=== PATIENT | female | born 2000 | race Caucasian/White ===

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

== ENCOUNTER 2022-01-16 20:46 | Emergency (ER) | payer BC, MEDICAID, SELFPAY ==
[2022-01-16 22:09] VITALS: BP 135/88; PULSE 115; RESP 18; TEMP 37.1; O2SAT 98; BMI 40.7
--- NOTE | 2022-01-16 23:05 | CTR_ITS ---
PROCEDURE INFORMATION: Exam: CT Maxillofacial Without Contrast; Mandible Exam date and time: 01/16/2022 11:10 PM Age: 21 years old Clinical indication: Injury or trauma; Blunt trauma (contusions or hematomas); Jaw; Prior surgery; Surgery type: [place] teeth extraction; Patient HX: Canned good from a high shelf slipped and struck patient on left side of mandible. C/O pain with swelling. ; Additional info: Facial trauma TECHNIQUE: Imaging protocol: Computed tomography maxillofacial without contrast. Exam focused on the mandible. Radiation optimization: All CT scans at this facility use at least one of these dose optimization techniques: automated exposure control; mA and/or kV adjustment per patient size (includes targeted exams where dose is matched to clinical indication); or iterative reconstruction. COMPARISON: No relevant prior studies available. RADIATION DOSE METRICS: Total DLP (mGy-cm): 612.48 FINDINGS: Orbital cavities: The orbits are intact. No orbital fracture. The globes appear unremarkable. Bones/joints: The nasal bones appear intact. The zygomatic arches are intact. The mandible is intact. No fracture of the pterygoid plates. Paranasal sinuses: No air-fluid levels are seen in the paranasal sinuses. Soft tissues: No soft tissue hematoma appreciated. CT/CT facial bones wo con* [id number] IMPRESSION: No acute maxillofacial fracture demonstrated.
--- NOTE | 2022-01-16 23:39 | W.ED.DENTAL ---
HPI - Dental/Oral General: Chief complaint: Dental/Oral Stated complaint: face injury Time Seen by Provider: 01/16/22 23:06 Source: patient History of Present Illness: 21-year-old female notes that she was at work, arranging cans on a shelf, and more than 1 can fell striking her in the left upper jaw mainly. She thinks her teeth on that side are a bit loose. There is no bleeding. No lacerations. Her jaw is visibly swollen and tender. MD Complaint: tooth pain (jaw pain) Onset (ago): hour(s) Duration: constant Severity: moderate Relieving factors: other (ice) Exacerbating factors: other Associated symptoms: Denies fever(s), gum swelling or tongue swelling Treatment prior to arrival: other Review of Systems Const: Denies: fever(s) Eyes: Denies: change in vision or blurry vision ENMT: Denies: throat pain Resp: Denies: dyspnea GI: Denies: vomiting Neuro: Reports: headache(s) All/Imm: Denies: tongue swelling PFSH ED PFSH: Medical History ADD (attention deficit disorder) Asthma Hyperlipidemia Hypertension No significant past medical history neghx: thyroid,dvt/pe PCP: [facility] Type 2 diabetes mellitus Surgical History H/O wisdom tooth extraction (~07/2019) History of cholecystectomy (~06/07/17) Family History Father Diabetes Hyperlipidemia Hypertension Mother Diabetes Grandfather Diabetes Maternal Hyperlipidemia Paternal Hypertension Paternal Maternal Heart disease Paternal Grandmother Hyperlipidemia Maternal grandmother Hypertension Paternal Maternal Stroke Maternal grandmother Paternal grandmother Breast cancer Maternal great grandmother--dx age unknown Paternal grandmother--dx age unknown Family/Other Hyperlipidemia Paternal aunt Breast cancer Paternal aunt--dx age unknown Denies family history of Colon cancer Ovarian cancer Family history of thyroid problem Uterine cancer Female Reproductive History: Date of last menstrual period: 01/16/22 Physical Exam Const: COMMON NORMALS: no acute distress GENERAL APPEARANCE: cooperative HENMT: COMMON NORMALS: Normal external nose present HEAD & SCALP: normal to inspection FACE & SINUS: edema (left maxillary) and Facial tenderness on exam of face and sinuses; no ecchymosis and no erythema NOSE: Normal external nose present and Normal nares present TEETH & GINGIVA: Yes abnormal tooth and associated gingiva (13 is miminmally loose. no fracture no bleeding) THROAT: posterior oropharynx normal Eye: COMMON NORMALS: Equal, round and reactive pupils present and EOMs intact bilaterally PUPIL: Yes Equal, round and reactive pupils present Neck/C-Spine: COMMON NORMALS: full ROM Chest: CHEST: Yes Symmetrical chest wall rise Resp: COMMON NORMALS: normal respiratory effort, No retractions and No use of accessory muscles Cardio: COMMON NORMALS: regular rate and regular rhythm RATE: regular rate RHYTHM: regular rhythm Neuro: ALINA COMA SCALE: document GCS findings Alina coma scale eye opening: Spontaneous Alina coma scale verbal response: Orientated [place] coma scale motor response: Obey commands Alina coma scale total score: 15 Course Vital Signs: Vital signs: Vital Signs Temperature 98.7 F 01/16/22 22:09 Pulse Rate 115 H 01/16/22 22:09 Respiratory Rate 18 01/16/22 22:09 Blood Pressure 135/88 01/16/22 22:09 Pulse Oximetry 98 01/16/22 22:09 Oxygen Delivery Me thod 01/16/22 22:09 MDM - Dental/Oral Medical Decision Making Exam does not reveal a tooth fracture, tooth abscess, or definite jaw deformity. She is visibly swollen. CT is pending. CT result is negative. Will allow home Lab Data Radiology Impressions Face CT 01/16/22 23:05 IMPRESSION: No acute maxillofacial fracture demonstrated. Discharge Plan Discharge Patient Disposition: Home Clinical Impression: Contusion of face Condition: Stable Prescriptions: New ketorolac 10 mg tablet 10 mg PO TID PRN (Reason: pain) Qty: 10 0RF No Action lovastatin 10 mg tablet 10 mg PO DAILY cholecalciferol (vitamin D3) 1,250 mcg (50,000 unit) tablet 1,250 mcg PO .weekly albuterol sulfate 90 mcg/actuation aerosol powdr breath activated 2 inh INHALATION Q6H PRN (Reason: Shortness Of Breath) lisinopril 2.5 mg tablet 10 mg PO DAILY venlafaxine 75 mg capsule,extended release 24hr 75 mg PO DAILY (DME) blood-glucose meter [Ornicept Verio Flex Start] Kit See Rx Instructions .Route Qty: 1 3RF Rx Instructions: Check blood sugars 4 times a day. Xifaxan 200 mg tablet 400 mg PO BID Qty: 120 0RF Slynd 4 mg (28) tablet 4 mg PO DAILY Qty: 3 3RF (DME) OneTouch Ultra Test Strip See Rx Instructions .Route Qty: 100 3RF Rx Instructions: Check BS 4 times a day. Lantus U-100 Insulin 100 unit/mL solution 60 unit SUBCUT DAILY Qty: 45 3RF Rx Instructions: Inject 60 units subcut once a day. (DME) lancets [OneTouch UltraSoft Lancets] Misc See Rx Instructions .Route Qty: 300 3RF Rx Instructions: Check BS 3 times a day. melatonin 5 mg Capsule 5 mg PO BEDTIME PRN (Reason: Sleep) Proctofoam 1 % foam 1 applic [place] BID Qty: 15 0RF EpiPen 2-Leo 0.3 mg/0.3 mL auto-injector 0.3 mg IM Q10M PRN (Reason: anaphylaxis) Qty: 2 2RF Rx Instructions: for 3 doses Discharge Orders: Discharge ED (Routine); Ordered 01/17/22 Ordered By: Mo Gutierrez Referrals: Teodoro Vasquez MD [Primary Care Provider] - 4-7 days Patient Instructions: Facial Contusion (ED) Coding Level of Care Code ED Flexographic Printing Machinist for Gosia Starkey
[2022-01-16] MEDS: oxyCODONE-APAP 5-325 mg Tablet 2 TAB PO (23:51)
== END 2022-01-17 00:44 | disposition home or self-care (01) ==
PROVIDERS: Emergency Provider Emergency Medicine; PCP Family Medicine
DX: S00.83XA Contusion of other part of head, initial encounter (principal); W20.8XXA Other cause of strike by thrown, projected or falling object, initial encounter; E78.5 Hyperlipidemia, unspecified; I10 Essential (primary) hypertension; E11.9 Type 2 diabetes mellitus without complications; Z79.4 Long term (current) use of insulin
CPT/HCPCS: 70486; 99284

== ENCOUNTER → 2022-02-02 13:25 | Outpatient (BNVA) | payer BC, MEDICAID, SELFPAY | PROVIDERS: PCP Family Medicine; Visit Provider Registered Nurse Neonatal Intensive Care | DX: S69.92XA Unspecified injury of left wrist, hand and finger(s), initial encounter (principal); W01.198A Fall on same level from slipping, tripping and stumbling with subsequent striking against other object, initial encounter | CPT/HCPCS: 73110 ==

== ENCOUNTER → 2022-03-22 12:34 | Outpatient (BNVA) | payer BC, MEDICAID, SELFPAY | PROVIDERS: PCP Family Medicine; Visit Provider Nurse Practitioner | DX: R50.9 Fever, unspecified (principal); K52.9 Noninfective gastroenteritis and colitis, unspecified | CPT/HCPCS: 87400 ==

== ENCOUNTER → 2022-04-26 10:35 | Outpatient (BNVA) | payer BC, MEDICAID, SELFPAY | PROVIDERS: PCP Family Medicine; Visit Provider Registered Nurse Neonatal Intensive Care | DX: R50.9 Fever, unspecified (principal); H66.002 Acute suppurative otitis media without spontaneous rupture of ear drum, left ear | CPT/HCPCS: 87400 ==

== ENCOUNTER 2022-11-13 08:14 | Outpatient (CLI) | payer BC, MEDICAID, SELFPAY ==
[2022-11-13 08:57] LABS: Basophils # 0.1 10^3/uL (0.0-0.1); Basophils % 0.4 %; Eosinophils # 0.1 10^3/uL (0.0-0.8); Eosinophils % 0.8 %; Hematocrit 38.7 % (37.0-47.0); Hemoglobin 13.2 g/dL (11.5-15.3); Lymphocytes # 5.5 10^3/uL (1.5-6.5); Lymphocytes % 33.6 %; Mean Corpuscular HGB Conc 34.1 g/dL (30.0-36.0); Mean Corpuscular Hemoglobin 28.2 pg (28.0-34.0); Mean Corpuscular Volume 82.7 fl (81-99); Mean Platelet Volume 9.2 fL (7.4-10.4); Monocytes % 6.3 %; Neutrophils # 9.65 10^3/uL (1.8-8.0); Neutrophils % 58.5 %; Nucleated Red Blood Cells % 0 %; Platelet Count 491 10^3/cmm (130-400); Red Blood Count 4.68 10^6/uL (4.1-5.3); Red Cell Distribution Width 14.9 % (12.1-15.1); White Blood Count 16.5 10^3/uL (4.5-13.0)
[2022-11-13 09:20] LABS: Estmated Average Glucose 200; Hemoglobin A1C 8.6 % (4.0-6.0)
[2022-11-13 09:25] LABS: Anion Gap 14.7 (5-19); Blood Urea Nitrogen 9 mg/dL (6-20); Carbon Dioxide 25 mmol/L (22-29); Chloride 101 mmol/L (98-107); Chol HDL Ratio 4.67 mg/dL (0.0-4.40); Cholesterol 182 mg/dL (0-200); Glomerular Filtration Rate 203.5 mL/min (90-130); Glucose 269 mg/dL (65-115); HDL Cholesterol 39 mg/dL (60-100); LDL Cholesterol Calculated 91 mg/dL (50-129); LDL HDL Ratio 2.33 RATIO (0.00-3.22); Osmolality Calculated 292 mOsm/kg (285-295); Potassium 3.7 mmol/L (3.5-5.1); Sodium 137 mmol/L (136-145); Thyroid Stimulating Hormone 3.15 uIU/mL (0.27-4.20); Triglycerides 261 mg/dL (0-150)
[2022-11-13 09:28] LABS: Creatinine Urine, Random 85 mg/dL (28-217); Microalbum Creatinine Ratio Ur 12 mg/dL (0-20); Microalbumin Random Urine 1 ug/dL (0-20)
[2022-11-13 09:37] LABS: Hepatitis A Antibody IgM Non-Reactive (Nonreactive); Hepatitis B Core AB, Total Non-Reactive (Nonreactive); Hepatitis B Surface Antigen Non-Reactive (Nonreactive); Hepatitis C Virus Antibody Non-Reactive (Nonreactive)
[2022-11-13 09:42] LABS: Hepatitis B Surface AB < 3.5 (11.5-1000)
[2022-11-13 10:59] LABS: LAB Peripheral Smear Sent for Review
== END 2022-11-13 08:15 | disposition home or self-care (01) ==
PROVIDERS: PCP Family Medicine; Visit Provider Family Medicine
DX: E11.9 Type 2 diabetes mellitus without complications (principal); E78.5 Hyperlipidemia, unspecified; I10 Essential (primary) hypertension
CPT/HCPCS: 36415; 80048; 80061; 80503; 82044; 83036; 84443; 85025; 86705; 86706; 86709; 86803; 87340

== ENCOUNTER 2022-12-23 20:43 | Emergency (ER) | payer BC, MEDICAID, SELFPAY ==
[2022-12-23 20:53] VITALS: BP 150/94; PULSE 134; RESP 20; TEMP 37.1; O2SAT 98; BMI 42.2
--- NOTE | 2022-12-23 20:56 | ECG_ITS ---
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 Measurements Intervals [place] Rate: 124 P: 61 IL: 150 QRS: 87 QRSD: 100 T: 4 QT: 337 QTc: 484 Interpretive Statements SINUS TACHYCARDIA NONSPECIFIC T-WAVE ABNORMALITY No previous ECG available for comparison Electronically Signed On 12-24-2022 14:00:02 CDT by Ted Fischer M.D. [id number]
--- NOTE | 2022-12-23 20:57 | XRR_ITS ---
PROCEDURE INFORMATION: Exam: XR Chest Exam date and time: 12/23/2022 9:13 PM Age: 22 years old Clinical indication: Pain; Chest pressure; Additional info: Chest pain TECHNIQUE: Imaging protocol: Radiologic exam of the chest. Views: 1 view. COMPARISON: CR XR KUB [id number] 01/20/2016 11:40 AM FINDINGS: Lungs: Unremarkable. No consolidation. Pleural spaces: Unremarkable. No pleural effusion. No pneumothorax. Heart/Mediastinum: Unremarkable. No cardiomegaly. Bones/joints: Unremarkable. XR/XR chest 1V portable [id number] IMPRESSION: No acute findings.
--- NOTE | 2022-12-23 21:01 | W.ED.CHESTPA ---
HPI - Chest Pain General: Chief Complaint: Chest Pain Stated Complaint: Chest Pain\SOB Time Seen by Provider: 12/23/22 20:56 History of Present Illness: 22-year-old female comes in today with chest wall tenderness. 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 After getting off work patient started having some discomfort in the anterior chest. Patient is to be following up with a administrative hearing officer for Holter monitor and further evaluation of recurrent chest pain. Patient states that occasionally she will have chest discomfort that lasts about 2 hours and resolves. Patient reports tactile stimuli seems to aggravate the pain today. Patient appears nontoxic. Patient appears mild to moderate pain. Patient has a history of ADD, hypertension, type 2 diabetes, asthma. Review of Systems General: Reports: 10 or more systems reviewed and unremarkable except in HPI and below Card: Reports: chest pain PFSH ED PFSH: Medical History ADD (attention deficit disorder) Asthma Hyperlipidemia Hypertension No significant past medical history neghx: thyroid,dvt/pe PCP: [facility] Type 2 diabetes mellitus Surgical History H/O wisdom tooth extraction (~07/2019) History of cholecystectomy (~06/07/17) Family History Father Diabetes Hyperlipidemia Hypertension Mother Diabetes Grandfather Diabetes Maternal Hyperlipidemia Paternal Hypertension Paternal Maternal Heart disease Paternal Grandmother Hyperlipidemia Maternal grandmother Hypertension Paternal Maternal Stroke Maternal grandmother Paternal grandmother Breast cancer Maternal great grandmother--dx age unknown Paternal grandmother--dx age unknown Family/Other Hyperlipidemia Paternal aunt Breast cancer Paternal aunt--dx age unknown Denies family history of Colon cancer Ovarian cancer Family history of thyroid problem Uterine cancer Social History Substance/Drug Use: never Do you think of yourself as: Don't Know Physical Exam Const: COMMON NORMALS: alert HENMT: COMMON NORMALS: normocephalic HEAD & SCALP: normocephalic MOUTH: Normal oral and palatal mucosa present Neck/C-Spine: COMMON NORMALS: full ROM Chest: CHEST: Yes tenderness (Anterior palpable tenderness) Resp: COMMON NORMALS: normal respiratory effort and clear to auscultation bilaterally AUSCULTATION: clear to auscultation bilaterally Cardio: COMMON NORMALS: regular rate and regular rhythm RATE: regular rate RHYTHM: regular rhythm Back/Pelvis: COMMON NORMALS: thoracic and lumbar spine normal to inspection Extremity: COMMON NORMALS: normal to inspection Neuro: SENSORIUM/ORIENTATION: Yes alert Skin: NARRATIVE SKIN EXAM: Appears to have seborrheic dermatitis to the face and scalp Course Vital Signs: Vital signs: Vital Signs Temperature 98.8 F 12/23/22 22:40 Pulse Rate 105 H 12/23/22 22:40 Respiratory Rate 16 12/23/22 22:40 Blood Pressure 123/81 12/23/22 22:40 Pulse Oximetry 97 12/23/22 22:40 MDM - Chest Pain Medical Decision Making 22-year-old female comes in today with complaints of tenderness to the chest wall. On exam patient appears nontoxic. Patient moves all extremities well. Palpation of the chest elicits pain. Patient appears nontoxic. Vital signs are normal except for some mild elevation in blood pressure and pulse. Differential diagnosis includes arrhythmia, costochondritis, muscle strain, anxiety. Laboratory values were unremarkable. EKG showed some mild sinus tachycardia. Patient's blood pressure and pulse rate came down. Patient's pain was improved with ketorolac injection. Reviewed exam with patient recommended follow-up with primary care for further instructions. Recommended [id number] pain relievers for discomfort. Patient stated understanding. Lab Data 12/23/22 21:03 12/23/22 21:03 Radiology Impressions Chest X-Ray 12/23/22 20:57 IMPRESSION: No acute findings. Laboratory Results WBC 15.4 10^3/uL (4.5-13.0) H 12/23/22 21:03 RBC 4.79 10^6/uL (4.1-5.3) 12/23/22 21:03 Hgb 13.3 g/dL (11.5-15.3) 12/23/22 21:03 Hct 39.3 % (37.0-47.0) 12/23/22 21:03 MCV 82.0 fl (81-99) 12/23/22 21:03 MCH 27.8 pg (28.0-34.0) L 12/23/22 21:03 MCHC 33.8 g/dL (30.0-36.0) 12/23/22 21:03 RDW 14.8 % (12.1-15.1) 12/23/22 21:03 Plt Count 570 10^3/cmm (130-400) H 12/23/22 21:03 MPV 9.3 fL (7.4-10.4) 12/23/22 21:03 Neut % (Auto) 62.9 % 12/23/22 21:03 Lymph % (Auto) 31.9 % 12/23/22 21:03 Huron % (Auto) 3.8 % 12/23/22 21:03 Eos % (Auto) 0.6 % 12/23/22 21:03 Baso % (Auto) 0.5 % 12/23/22 21:03 Neut # (Auto) 9.70 10^3/uL (1.8-8.0) H 12/23/22 21:03 Lymph # (Auto) 4.9 10^3/uL (1.5-6.5) 12/23/22 21:03 Huron # (Auto) 0.6 10^3/uL (0.2-0.9) 12/23/22 21:03 Eos # (Auto) 0.1 10^3/uL (0.0-0.8) 12/23/22 21:03 Baso # (Auto) 0.1 10^3/uL (0.0-0.1) 12/23/22 21:03 Nucleated RBC % (auto) 0 % 12/23/22 21:03 Nucleated RBCs # 0.0 /100WBC 12/23/22 21:03 D-Dimer 0.29 ug/mIFEU (0-0.59) 12/23/22 21:03 Sodium 135 mmol/L (136-145) L 12/23/22 21:03 Potassium 3.7 mmol/L (3.5-5.1) 12/23/22 21:03 Chloride 100 mmol/L (98-107) 12/23/22 21:03 Carbon Dioxide 22 mmol/L (22-29) 12/23/22 21:03 Anion Gap 16.7 (5-19) 12/23/22 21:03 BUN 12 mg/dL (6-20) 12/23/22 21:03 Creatinine 0.6 mg/dL (0.5-0.9) 12/23/22 21:03 GFR Calculation 127.5 mL/min (90-130) 12/23/22 21:03 Glucose 294 mg/dL (65-115) H 12/23/22 21: Calculated Osmolality 291 mOsm/kg (285-295) 12/23/22 21: Calcium 9.4 mg/dL (8.5-10.5) 12/23/22 21:03 Total Bilirubin 0.6 mg/dL (0.15-1.2) 12/23/22 21:03 AST 12 U/L (0-32) 12/23/22 21: ALT 15 U/L (0-33) 12/23/22 21:03 Alkaline Phosphatase 95 U/L (35-105) 12/23/22 21:03 Troponin T Baseline 8 ng/L (0-10) 12/23/22 21:03 NT-Pro-B Natriuret Pep 36 pg/mL (0-125) 12/23/22 21:03 Total Protein 7.4 g/dL (6.6-8.7) 12/23/22 21: Albumin 4.5 g/dL (3.5-5.2) 12/23/22 21: Globulin 2.9 g/dL (1.3-4.6) 12/23/22 21: Lipase 16 U/L (13-60) 12/23/22 21: HCG, Qual Negative (Negative) 12/23/22 21:03 Discharge Plan Discharge Patient Disposition: Home Clinical Impression: Acute chest wall pain Condition: Stable Prescriptions: No Action lovastatin 10 mg tablet 10 mg PO DAILY cholecalciferol (vitamin D3) 1,250 mcg (50,000 unit) tablet 1,250 mcg PO .weekly albuterol sulfate 90 mcg/actuation aerosol powdr breath activated 2 inh INHALATION Q6H PRN (Reason: Shortness Of Breath) lisinopril 2.5 mg tablet 10 mg PO DAILY venlafaxine 75 mg capsule,extended release 24hr 75 mg PO DAILY (DME) blood-glucose meter [GridApp Systemsuch Verio Flex Start] Kit See Rx Instructions .Route Qty: 1 3RF Rx Instructions: Check blood sugars 4 times a day. Xifaxan 200 mg tablet 400 mg PO BID Qty: 120 0RF fluconazole [Diflucan] 150 mg tablet 150 mg PO Q3D Qty: 3 0RF Rx Instructions: for a total of 3 doses ondansetron 4 mg tablet,disintegrating 4 mg PO Q8H PRN (Reason: nausea and vomiting) Qty: 14 0RF (DME) OneTouch Ultra Test Strip See Rx Instructions .Route Qty: 100 3RF Rx Instructions: Check BS 4 times a day. Lantus U-100 Insulin 100 unit/mL solution 60 unit SUBCUT DAILY Qty: 45 3RF Rx Instructions: Inject 60 units subcut once a day. (DME) lancets [OneTouch UltraSoft Lancets] Misc See Rx Instructions .Route Qty: 300 3RF Rx Instructions: Check BS 3 times a day. Slynd 4 mg (28) tablet See Rx Instructions .ROUTE .COMPLEX Qty: 84 2RF Dose Instruction: TAKE 1 TABLET BY MOUTH EVERY DAY Rx Instructions: TAKE 1 TABLET BY MOUTH EVERY DAY melatonin 5 mg Capsule 5 mg PO BEDTIME PRN (Reason: Sleep) EpiPen 2-Leo 0.3 mg/0.3 mL auto-injector 0.3 mg IM Q10M PRN (Reason: anaphylaxis) Qty: 2 2RF Rx Instructions: for 3 doses ketorolac 10 mg tablet 10 mg PO TID PRN (Reason: pain) Qty: 10 0RF Discharge Orders: Discharge ED (Routine); Ordered 12/23/22 Ordered By: Lopez Salinas Referrals: Teodoro Vasquez MD [Primary Care Provider] - Discharge Diet: Usual diet Discharge Activity: Increase activity as tolerated Patient Instructions: Chest Wall Pain (ED) Activity Restrictions/Additional Instructions: Drink plenty of water. Use acetaminophen and/or ibuprofen to help with pain. Activity as tolerated. Follow-up with primary care for further instructions. Return to ED for new concerns. Coding Level of Care Code ED Personal Lines Insurance Agent for Gosia Starkey
[2022-12-23] MEDS: ketorolac 30 mg/mL INJ 15 MG IVP (21:14)
[2022-12-23 21:16] LABS: Basophils # 0.1 10^3/uL (0.0-0.1); Basophils % 0.5 %; Eosinophils # 0.1 10^3/uL (0.0-0.8); Eosinophils % 0.6 %; Hematocrit 39.3 % (37.0-47.0); Hemoglobin 13.3 g/dL (11.5-15.3); Lymphocytes # 4.9 10^3/uL (1.5-6.5); Lymphocytes % 31.9 %; Mean Corpuscular HGB Conc 33.8 g/dL (30.0-36.0); Mean Corpuscular Hemoglobin 27.8 pg (28.0-34.0); Mean Platelet Volume 9.3 fL (7.4-10.4); Monocytes # 0.6 10^3/uL (0.2-0.9); Monocytes % 3.8 %; Neutrophils % 62.9 %; Nucleated Red Blood Cells % 0 %; Platelet Count 570 10^3/cmm (130-400); Red Blood Count 4.79 10^6/uL (4.1-5.3); Red Cell Distribution Width 14.8 % (12.1-15.1); White Blood Count 15.4 10^3/uL (4.5-13.0)
[2022-12-23 21:34] LABS: D Dimer 0.29 ug/mIFEU (0-0.59)
[2022-12-23 21:36] LABS: HCG, Serum Qual Negative (Negative)
[2022-12-23 21:45] VITALS: BP 123/81; PULSE 122; RESP 16; O2SAT 97
[2022-12-23 21:46] LABS: Alanine Aminotransferase 15 U/L (0-33); Albumin Level 4.5 g/dL (3.5-5.2); Alkaline Phosphatase 95 U/L (35-105); Anion Gap 16.7 (5-19); Aspartate Amino Transferase 12 U/L (0-32); Blood Urea Nitrogen 12 mg/dL (6-20); Calcium 9.4 mg/dL (8.5-10.5); Carbon Dioxide 22 mmol/L (22-29); Chloride 100 mmol/L (98-107); Globulin 2.9 g/dL (1.3-4.6); Glomerular Filtration Rate 127.5 mL/min (90-130); Glucose 294 mg/dL (65-115); Lipase 16 U/L (13-60); NT Pro B Type Natriuretic Pept 36 pg/mL (0-125); Osmolality Calculated 291 mOsm/kg (285-295); Potassium 3.7 mmol/L (3.5-5.1); Sodium 135 mmol/L (136-145); Total Bilirubin 0.6 mg/dL (0.15-1.2); Total Protein 7.4 g/dL (6.6-8.7)
[2022-12-23 22:15] LABS: Troponin(5th) Baseline 8 ng/L (0-10)
[2022-12-23 22:40] VITALS: BP 123/81; PULSE 105; RESP 16; TEMP 37.1; O2SAT 97
== END 2022-12-23 22:42 | disposition home or self-care (01) ==
PROVIDERS: Emergency Provider Nurse Practitioner Family; PCP Family Medicine
DX: R07.89 Other chest pain (principal); E11.9 Type 2 diabetes mellitus without complications; I10 Essential (primary) hypertension; E78.5 Hyperlipidemia, unspecified; J45.909 Unspecified asthma, uncomplicated; Z79.84 Long term (current) use of oral hypoglycemic drugs; Z79.899 Other long term (current) drug therapy
CPT/HCPCS: 71045; 80053; 83690; 83880; 84484; 84703; 85025; 85378; 93005; 96374; 99285; J1885

== ENCOUNTER → 2023-03-01 13:37 | Outpatient (BNVA) | payer BC, MEDICAID, SELFPAY | PROVIDERS: PCP Family Medicine; Visit Provider Internal Medicine | DX: R07.9 Chest pain, unspecified (principal); R00.0 Tachycardia, unspecified | CPT/HCPCS: 93005 ==

== ENCOUNTER 2023-03-16 07:50 | Outpatient (CLI) | payer BC, MEDICAID, SELFPAY ==
--- NOTE | 2023-03-16 08:15 | USCV_ITS ---
Ines Brooks Age: 22 Gender: F : 2000 Exam Date: 03/16/2023 08:15 Ordering Phys: Ted Fischer M.D ([email or web address]) Technologist: Sarah Escobar [place] [facility] [place]: CHEST PAIN SOB BP: / HR: 88 Rhythm: Sinus Technical Quality: Adequate MEASUREMENTS (Male / Female) Normal Values 2D ECHO LV Diastolic Diameter PLAX 4.0 cm 4.2 - 5.9 / 3.9 - 5.3 cm LV Systolic Diameter PLAX 2.1 cm LV Chamber Size 3.5 cm IVS Diastolic Thickness 1.1 cm 0.6 - 1.0 / 0.6 - 0.9 cm IVS Systolic Thickness 0.9 cm LVPW Diastolic Thickness 1.2 cm 0.6 - 1.0 / 0.6 - 0.9 cm LVPW Systolic Thickness 1.4 cm RV Chamber Size 2.9 cm LVOT Diameter 2.0 cm LV Ejection Fraction 2D Teich 73.6 % LV Ejection Fraction MOD 2C 55.5 % LV Ejection Fraction 2C AL 56.7 % LA Diameter 2.1 cm LA Width 2.9 cm LA Height 3.4 cm RA Width 3.7 cm RA Height 3.5 cm Aorta at Sinotubular Diameter 2.7 cm M-MODE Aortic Annulus Diameter 2.7 cm LA Ao Ratio MM 1.2 MV E Point Septal Separation 1.6 cm DOPPLER AV Peak Velocity 123.0 cm/s LVOT Peak Velocity 89.0 cm/s AV Area Cont Eq vti 2.4 cm squared AV Area Cont Eq pk 2.2 cm squared MV Area PHT 4.5 cm squared Mitral E to A Ratio 1.8 MV E' Velocity 51.0 cm/s Mitral E to MV E' Ratio 6.9 Mitral E to LV E' Lateral Ratio 6.1 Mitral E to LV E' Septal Ratio 7.8 TR Peak Velocity 137.4 cm/s TR Peak Gradient 7.6 mmHg TR Mean Velocity 80.6 cm/s TR Mean Gradient 3.2 mmHg TR Velocity Time Integral 25.5 cm TV Peak E Velocity 70.0 cm/s Right Atrial Pressure 3.0 mmHg Pulmonary Artery Systolic Pressu 10.6 mmHg RV Acceleration Time 0.2 s RV Ejection Time 0.4 s RV AcT/ET 0.6 FINDINGS Left Ventricle Normal left ventricular size, systolic function and wall thickness, with no regional wall motion abnormalities. LV EF is 60-65%. Normal diastolic filling pattern. Right Ventricle The right ventricle is normal in size and function. Right Atrium The right atrium is normal in size. Left Atrium The left atrium is normal in size. Mitral Valve Structurally normal mitral valve without significant stenosis or prolapse. There is no mitral regurgitation. Aortic Valve Structurally normal aortic valve. No significant stenosis. There is no aortic regurgitation. Tricuspid Valve Mild tricuspid regurgitation. Pulmonary artery systolic pressure is normal Pulmonic Valve Not well visualized Pericardium Normal pericardium without effusion. Aorta Normal ascending aorta dimension. IVC The inferior vena cava appears normal. CONCLUSIONS LV systolic function is normal with EF of 60-65% Diastolic function is normal Mild tricuspid regurgitation No comparison studies are available Ted Fischer MD (Electronically Signed) Final Date: 20 March 2023 12:36 S
== END 2023-03-16 07:51 | disposition home or self-care (01) ==
LOC: RAD 07:50
PROVIDERS: PCP Family Medicine; Visit Provider Internal Medicine
DX: R07.9 Chest pain, unspecified (principal); R00.2 Palpitations; R06.09 Other forms of dyspnea; I07.1 Rheumatic tricuspid insufficiency
CPT/HCPCS: 93306

== ENCOUNTER 2023-07-01 06:49 | Emergency (ER) | payer BC, MEDICAID, SELFPAY ==
[2023-07-01 06:56] VITALS: BMI 43.0
[2023-07-01 06:58] VITALS: BP 100/74; PULSE 128; RESP 16; TEMP 37.9; O2SAT 96
--- NOTE | 2023-07-01 07:04 | XR_ITS ---
WS: [id number] Portable AP upright chest, 07/01/2023 Clinical Data: dyspnea/cough Comparison: Portable chest, 12/23/2022 Findings: No nodules, masses or effusions are seen. The heart is normal. The pulmonary vascularity is not increased. No pneumonia or pneumothorax is seen. Impression: Negative chest.
[2023-07-01 07:05] VITALS: O2SAT 97
--- NOTE | 2023-07-01 07:13 | ED_ITS ---
HPI - COVID General: Chief Complaint: COVID symptoms Stated Complaint: cough, fever Time Seen by Provider: 07/01/23 06:57 Source: patient Mode of arrival: ambulatory Triage information: Has fever, cough or shortness of breath . History of Present Illness: 23-year-old female presents emergency ro om with complaints of cough shortness of breath. Has a history of asthma used albuterol yesterday when the symptoms began has not taken anything this morning for cough or fever. No vomiting no diarrhea. No hemoptysis or purulent sputum cough MD complaint: reported COVID exposure and has COVID symptoms Prior covid testing: no COVID 19 common symptoms: positive fever(s), chills, non-productive cough, dysp blaaji, fatigue, body aches, headache(s), nasal congestion and nausea COVID 19 other sytmptoms: negative chest pain, requiring oxygen or respiratory distress Onset (ago): hour(s) Pertinent comorbid conditions: obesity Treatment prior to arrival: none COVID Results: SARS-CoV-2 RNA (RT-PCR) Not detected (NOT DETECTED) 12/04/21 1 4:37 SARS-CoV-2 (PCR) Not detected (NOT DETECT) 07/01/23 07:15 Coronavirus Type 229E (PCR) Not detected (NOT DETECT) 07/01/23 07:15 Review of Systems Const: Reports: fever(s), chills, body aches and fatigue ENMT: Reports: nasal congestion Card: Denies: chest pain Resp: Reports: dyspnea and non-productive cough GI: Reports: nausea; Denies: abdominal pain : Denies: dysuria, urinary frequency or urinary urgency Musc: Denies: neck pain or back pain Skin/Breast: Denies: rash Neuro: Reports: headache(s) PFS ED PFSH: Medical History No significant past medical history neghx: thyroid,dvt/pe PCP: [facility] ADD (attention deficit disorder) Asthma Hyperlipidemia Hypertension Type 2 diabetes mellitus Surgical History H/O wisdom tooth extraction (~07/2019) History of cholecystectomy (~06/07/17) Family History Father Diabetes Hyperlipidemia Hypertension Mother Diabetes Grandfather Diabetes Maternal Hyperlipidemia Paternal Hypertension Paternal Maternal Heart disease Paternal Grandmother Hyperlipidemia Maternal grandmother Hypertension Paternal Maternal Stroke Maternal grandmother Paternal grandmother Breast cancer Maternal great grandmother--dx age unknown Paternal grandmother--dx age unknown Family/Other Hyperlipidemia Paternal aunt Breast cancer Paternal aunt--dx age unknown Denies family history of Colon cancer Ovarian cancer Family history of thyroid problem Uterine cancer Female Reproductive History: Date of last menstrual period: 06/17/23 Physical Exam Const: GENERAL APPEARANCE: cooperative and comfortable ORIENTATION/CONSCIOUSNESS: Yes awake, Yes oriented to person, Yes oriented to place and Yes oriented to time HENMT: COMMON NORMALS: normocephalic, atraumatic and hearing grossly normal bilaterally HEAD & SCALP: normocephalic and atraumatic Resp: COMMON NORMALS: normal respiratory effort, No retractions and No use of accessory muscles AUSCULTATION: wheezes Cardio: COMMON NORMALS: regular rhythm and No murmurs present (Cardio) RATE: tachycardic RHYTHM: regular rhythm Extremity: COMMON NORMALS: normal to inspection, capillary refill normal, no clubbing, cyanosis or edema, no calf tenderness and no pedal edema Neuro: SENSORIUM/ORIENTATION: Yes oriented to person, Yes oriented to place and Yes oriented to time Skin: COMMON NORMALS: no rashes or lesions noted GENERAL SKIN EXAM: no rashes or lesions noted Course Vital Signs: Vital signs: Vital Signs Temperature 100.3 F H 07/01/23 06:58 Pulse Rate 103 H 07/01/23 08:49 Respiratory Rate 16 07/01/23 06:58 Blood Pressure 100/74 07/01/23 06:58 Pulse Oximetry 97 07/01/23 08:49 Oxygen Delivery Me thod Room Air 07/01/23 07:05 MDM - COVID Medical Decision Making Flu and COVID are negative. Fever improved exam is generally benign chest x-ray did not show any infiltrate. Discharge patient home initially were waiting on the COVID it came back negative later. Supportive cares and follow-up as needed. Can use Tylenol or ibuprofen albuterol as needed as well. Medical Records I reviewed the patient's medical records. Lab Data I reviewed the patient's lab results. Laboratory Results Coronavirus 229E (PCR) Not detected (NOT DETECT) 07/01/23 07:15 Influenza Type A Ag negative (Negative) 07/01/23 07:15 Influenza Type B Ag negative (Negative) 07/01/23 07:15 SARS-CoV-2 (PCR) Not detected (NOT DETECT) 07/01/23 07:15 SARS-CoV-2 RNA (RT-PCR) Not detected (NOT DETECTED) 12/04/21 1 4:37 SARS-CoV-2 (PCR) Not detected (NOT DETECT) 07/01/23 07:15 Coronavirus Type 229E (PCR) Not detected (NOT DETECT) 07/01/23 07:15 All radiology interpretation(s) finalized by discharge Discharge Plan Discharge Patient Disposition: Home Clinical Impression: Viral infection, Close exposure to severe acute respiratory syndrome coronavirus 2 (SARS-CoV-2), Close exposure to 2019-nCoV Condition: Stable Prescriptions: No Action lovastatin 10 mg tablet 10 mg PO DAILY cholecalciferol (vitamin D3) 1,250 mcg (50,000 unit) tablet 1,250 mcg PO .weekly albuterol sulfate 90 mcg/actuation aerosol powdr breath activated 2 inh INHALATION Q6H PRN (Reason: Shortness Of Breath) lisinopril 2.5 mg tablet 10 mg PO DAILY venlafaxine 75 mg capsule,extended release 24hr 75 mg PO DAILY (DME) blood-glucose meter [OneTouch Verio Flex Start] Kit See Rx Instructions .Route Qty: 1 3RF Rx Instructions: Check blood sugars 4 times a day. Slynd 4 mg (28) tablet 1 tab PO DAILY Qty: 84 3RF (DME) Diabetic Shoes with 3 pairs of inserts See Rx Instructions .Route .MEDSUPPLY Qty: 1 0RF Rx Instructions: As directed by [employer] Pablo famotidine 20 mg tablet 20 mg PO DAILY PRN metoprolol succinate 25 mg tablet extended release 24 hr 25 mg PO DAILY ondansetron 4 mg tablet,disintegrating 4 mg PO Q8H PRN (Reason: nausea and vomiting) Qty: 14 0RF insulin glargine [Lantus Solostar U-100 Insulin] 100 unit/mL (3 mL) insulin pen See Rx Instructions .ROUTE .COMPLEX Qty: 45 3RF Dose Instruction: INJECT 60 UNITS SUBQUTANEOUSLY ONCE DAILY Rx Instructions: INJECT 110 UNITS SUBQUTANEOUSLY ONCE DAILY (DME) OneTouch Ultra Test Strip See Rx Instructions .Route Qty: 100 3RF Rx Instructions: Check BS 4 times a day. (DME) lancets [OneTouch UltraSoft Lancets] Misc See Rx Instructions .Route Qty: 300 3RF Rx Instructions: Check BS 3 times a day. (DME) Dexcom G7 Industrial Order Clerk Misc See Rx Instructions .ROUTE .COMPLEX Qty: 1 0RF Dose Instruction: DIRECTED Rx Instructions: DIRECTED (DME) Dexcom G7 Sensor Device See Rx Instructions .ROUTE .MEDSUPPLY Qty: 9 0RF Rx Instructions: Change every 10days melatonin 5 mg Capsule 5 mg PO BEDTIME PRN (Reason: Sleep) EpiPen 2-Leo 0.3 mg/0.3 mL auto-injector 0.3 mg IM Q10M PRN (Reason: anaphylaxis) Qty: 2 2RF Rx Instructions: for 3 doses Discharge Orders: Discharge ED (Routine); Ordered 07/01/23 Ordered By: Dionicio Pope Referrals: Teodoro Vasquez MD [Primary Care Provider] - Discharge Diet: Usual diet Discharge Activity: Increase activity as tolerated Patient Instructions: COVID-19 (Coronavirus Disease 2019) (ED), Opioid Safety, Pain Management Activity Restrictions/Additional Instructions: Thank you for choosing [facility] for your healthcare needs today. Please realize this is an emergency room and that we are providing you with a medical screening exam and this may not be complete and all inclusive of all the testing and or work up that you may need to determine your ailment or severity of your illness. It is very important that you follow up as instructed or that you return to the Emergency Department should you have concerns or if your condition changes or worsens in any way. Suspect you likely have COVID-19 based on your symptoms and history of exposure. COVID-19 PCR swab is still pending we will contact you with results when they are available. If it is positive you will be eligible for treatment with Paxlovid which we will call into the pharmacy of your choice. Continue to use albuterol as needed along with Tylenol and ibuprofen for relief of symptoms Coding Level of Care Code ED Rock Crushing Machine Operator for Gosia Starkey
[2023-07-01] MEDS: acetaminophen 500 mg Tablet 1000 MG PO (07:27)
[2023-07-01 07:46] LABS: Influenza A by IFA negative (Negative); Influenza B by IFA negative (Negative)
[2023-07-01 08:49] VITALS: PULSE 103; O2SAT 97
[2023-07-01 09:10] LABS: Adenovirus Not Detected (NOT DETECT); Chlamydia Pneumoniae Not Detected (NOT DETECT); Coronavirus 229E,HKU1,NL63,OC4 Not Detected (NOT DETECT); Human Metapneumovirus Not Detected (NOT DETECT); Human Rhinovirus/Enterovirus Not Detected (NOT DETECT); Influenza A Not Detected (NOT DETECT); Influenza A H1 Not Detected (NOT DETECT); Influenza A H1-2009 Not Detected (NOT DETECT); Influenza A H3 Not Detected (NOT DETECT); Influenza B Not Detected (NOT DETECT); Mycoplasma Pneumoniae Not Detected (NOT DETECT); Parainfluenza Virus Type 1 Not Detected (NOT DETECT); Parainfluenza Virus Type 2 Not Detected (NOT DETECT); Parainfluenza Virus Type 3 Not Detected (NOT DETECT); Parainfluenza Virus Type 4 Not Detected (NOT DETECT); Respiratory Syncytial Virus A Not Detected (NOT DETECT); Respiratory Syncytial Virus B Not Detected (NOT DETECT); SARS-COV-2 Not Detected (NOT DETECT)
== END 2023-07-01 08:50 | disposition home or self-care (01) ==
PROVIDERS: Emergency Provider Family Medicine; PCP Family Medicine
DX: B34.9 Viral infection, unspecified (principal); Z11.52 Encounter for screening for COVID-19; Z20.822 Contact with and (suspected) exposure to COVID-19; Z79.4 Long term (current) use of insulin; E78.5 Hyperlipidemia, unspecified; I10 Essential (primary) hypertension; E11.9 Type 2 diabetes mellitus without complications
CPT/HCPCS: 71045; 87635; 87804; 99284

== ENCOUNTER 2023-09-07 07:12 | Outpatient (CLI) | payer BC, MEDICAID, SELFPAY ==
[2023-09-07 07:51] LABS: Alanine Aminotransferase 20 U/L (0-33); Alkaline Phosphatase 91 U/L (35-105); Anion Gap 12.9 (5-19); Aspartate Amino Transferase 13 U/L (0-32); Blood Urea Nitrogen 11 mg/dL (6-20); Calcium 9.4 mg/dL (8.5-10.5); Carbon Dioxide 28 mmol/L (22-29); Chloride 103 mmol/L (98-107); Chol HDL Ratio 5.17 mg/dL (0.0-4.40); Cholesterol 186 mg/dL (0-200); Globulin 2.9 g/dL (1.3-4.6); Glomerular Filtration Rate 126.2 mL/min (90-130); Glucose 164 mg/dL (65-115); HDL Cholesterol 36 mg/dL (60-100); LDL Cholesterol Calculated 117 mg/dL (50-129); LDL HDL Ratio 3.25 RATIO (0.00-3.22); Osmolality Calculated 293 mOsm/kg (285-295); Potassium 3.9 mmol/L (3.5-5.1); Sodium 140 mmol/L (136-145); Total Bilirubin 0.5 mg/dL (0.15-1.2); Total Protein 6.9 g/dL (6.6-8.7); Triglycerides 165 mg/dL (0-150)
[2023-09-07 09:14] LABS: Estmated Average Glucose 214; Hemoglobin A1C 9.1 % (4.0-6.0)
[2023-09-07 13:10] LABS: Creatinine Urine, Random 151 mg/dL (28-217); Microalbum Creatinine Ratio Ur 7 mg/dL (0-20); Microalbumin Random Urine 1 ug/dL (0-20)
== END 2023-09-07 07:13 | disposition home or self-care (01) ==
LOC: LAB 07:13
PROVIDERS: PCP Family Medicine; Visit Provider Internal Medicine
DX: E11.69 Type 2 diabetes mellitus with other specified complication (principal); E78.2 Mixed hyperlipidemia
CPT/HCPCS: 36415; 80053; 80061; 82044; 83036

== ENCOUNTER 2024-03-16 08:16 | Emergency (ER) | payer BC, MEDICAID, SELFPAY ==
[2024-03-16 08:40] VITALS: BP 114/76; PULSE 98; RESP 16; TEMP 36.8; O2SAT 97; BMI 46.7
--- NOTE | 2024-03-16 08:53 | US_ITS ---
WS: [id number] ULTRASOUND SOFT TISSUES LEFT lower leg HISTORY: LEFT leg lump. COMPARISON: None available. TECHNIQUE: 2-D and color Doppler imaging is submitted. No well-defined mass identified. There is an intramuscular area of mixed echogenicity involving the l ateral calf. This is the area of the pain. This may be an intramuscular hematoma. No increased vascul arity. This is very nonspecific. US/US soft tissue/extremity [id number] IMPRESSION: 1. Subtle area of mixed attenuation in one of the muscles of the lower extremi ty. Cannot identify the margins of of this mass. Could potentially be an intram uscular hematoma. 2. If this mass does not resolve or becomes more painful consider MRI of the L EFT lower extremity with and without contrast.
--- NOTE | 2024-03-16 08:53 | USCV_ITS ---
Ines Brooks Age: 23 Gender: F : 2000 Exam Date: 03/16/2024 09:05 Ordering Phys: Stefan Dunn MD Technologist: R Exam Location[place] [facility] [place]ication: Lateral lower leg lump HISTORY: Lt Lateral lower leg lump PROCEDURES: Venous duplex imaging was performed in only the left lower extremity. The following venous structures were evaluated: common femoral vein, profunda vein, proximal portion of the greater saphenous vein, superficial femoral vein, and the popliteal vein. In addition, the posterior tibial and peroneal trunk were evaluated. Serial compression, augmentation maneuvers, and spectral Doppler flow evaluation were performed. FINDINGS: Normal 2-D Doppler and augmentation and compressibility throughout the lower extremity venous structures. Additional imaging through the proximal calf veins also reveals no thrombus. Limited evaluation of the greater saphenous vein is patent with no thrombus. CONCLUSIONS No DVT left lower extremity. Dr. Sandrine Zavala DO (Electronically Signed) Final Date: 16 March 2024 11:33 S
--- NOTE | 2024-03-16 08:54 | ED_ITS ---
HPI - Extremity Problem General: Chief complaint: Extremity Problem,Nontraumatic Stated complaint: lump on lt leg Time Seen by Provider: 03/16/24 08:20 Source: patient Mode of arrival: ambulatory Limitations: no limitations History of Present Illness: 23-year-old female states she has had a area of swelling it has been a lump to the left lateral leg for the last 2 to 3 weeks states it has been having some increasing pain she denies any drainage or erythema denies any injuries. States pain sharp in nature rates it a 2 out of 10 currently no history of DVT states she had seen her PCP was trying to get an ultrasound scheduled but has not been able to Associated symptoms: Deny chest pain, fever(s) or rash Related Data Home Medications Medication Instructions Recorded Confirmed lisinopril 2.5 mg tablet 10 mg PO DAILY 03/10/21 03/16/24 venlafaxine 75 mg capsule,extended 150 mg PO DAILY 03/10/21 03/16/24 release 24 hr melatonin 5 mg capsule 5 mg PO BEDTIME PRN Sleep 08/12/21 03/16/24 famotidine 20 mg tablet 20 mg PO DAILY PRN Stomach Upset 03/01/23 03/16/24 albuterol sulfate 2.5 mg/3 mL 1 mg inhalation TID 03/16/24 03/16/24 (0.083 %) solution for nebulization fluocinolone 0.01 % scalp oil and 1 applic topical DAILY 03/16/24 03/16/24 shower cap glipizide 10 mg tablet 10 mg PO TID 03/16/24 03/16/24 lovastatin 40 mg tablet 40 mg PO DAILY 03/16/24 03/16/24 metoprolol succinate 50 mg 50 mg PO BID 03/16/24 03/16/24 tablet,extended release 24 hr naproxen 500 mg tablet 500 mg PO Q12H 03/16/24 03/16/24 Previous Rx's Medication Instructions Recorded blood-glucose meter (OneTouch #1 ea 03/10/21 Verio Flex Start kit) blood sugar diagnostic (OneTouch #100 ea 05/12/21 Ultra Test strips) epinephrine 0.3 mg/0.3 mL 0.3 mg (0.3 mL) IM Q10M PRN 11/23/21 injection, auto-injector (EpiPen anaphylaxis #2 ea 2-Leo) lancets (OneTouch UltraSoft #300 ea 01/08/22 Lancets) Diabetic Shoes with 3 pairs of #1 ea 12/28/22 inserts blood-glucose meter,continuous #1 ea 05/06/23 (Dexcom G7 Network Cable Installer) drospirenone (contraceptive) 4 mg 1 tab PO DAILY #84 tabs 05/11/23 (28) tablet (Slynd) tuberculin-allergy syringes 1 mL #100 ea 09/01/23 26 gauge x 3/8 insulin glargine 100 unit/mL (3 See Rx Instructions .Route 12/28/23 mL) subcutaneous pen (Lantus .COMPLEX #144 mL Solostar U-100 Insulin) blood-glucose sensor (Dexcom G7 #3 ea 01/24/24 Sensor device) Allergies Allergy/AdvReac Type Severity Reaction Status Date / Time No Known Allergies Allergy Verified 09/13/23 08:57 Review of Systems Const: Denies: fever(s), chills, body aches or change in appetite ENMT: Denies: throat pain or dental pain Card: Denies: chest pain Resp: Denies: dyspnea GI: Denies: abdominal pain, nausea, vomiting or diarrhea Musc: Reports: extremity pain; Denies: neck pain or back pain Skin/Breast: Denies: rash Neuro: Denies: headache(s) PFSH ED PFSH: Medical History No significant past medical history neghx: thyroid,dvt/pe PCP: [facility] ADD (attention deficit disorder) Asthma Hyperlipidemia Hypertension Type 2 diabetes mellitus Surgical History H/O wisdom tooth extraction (~07/2019) History of cholecystectomy (~06/07/17) Family History Father Diabetes Hyperlipidemia Hypertension Mother Diabetes Grandfather Diabetes Maternal Hyperlipidemia Paternal Hypertension Paternal Maternal Heart disease Paternal Grandmother Hyperlipidemia Maternal grandmother Hypertension Paternal Maternal Stroke Maternal grandmother Paternal grandmother Breast cancer Maternal great grandmother--dx age unknown Paternal grandmother--dx age unknown Family/Other Hyperlipidemia Paternal aunt Breast cancer Paternal aunt--dx age unknown Denies family history of Colon cancer Ovarian cancer Family history of thyroid problem Uterine cancer Physical Exam Const: COMMON NORMALS: no acute distress, patient oriented x3 and healthy appearing HENMT: COMMON NORMALS: normocephalic and atraumatic HEAD & SCALP: normocephalic and atraumatic Neck/C-Spine: COMMON NORMALS: full ROM and supple Chest: COMMONS NORMALS: normal inspection of the chest Resp: COMMON NORMALS: normal respiratory effort Cardio: COMMON NORMALS: regular rate RATE: regular rate Extremity: NARRATIVE EXTREMITY EXAM: Small lump palpated to left lower lateral leg no abscess formation no erythema Neuro: COMMON NORMALS: patient oriented x3, moves all extremities and no focal motor deficits Psych: COMMON NORMALS: mental status grossly normal, Normal thought process present and cooperative THOUGHT PROCESS: Normal thought process present Skin: COMMON NORMALS: no rashes or lesions noted and no wounds GENERAL SKIN EXAM: no rashes or lesions noted Course Vital Signs: Vital signs: Vital Signs Temperature 98.2 F 03/16/24 08:40 Pulse Rate 91 03/16/24 09:12 Respiratory Rate 16 03/16/24 08:40 Blood Pressure 99/62 03/16/24 09:12 Pulse Oximetry 96 03/16/24 09:12 Oxygen Delivery Me thod Room Air 03/16/24 09:12 MDM - Extremity (Nontraumatic) Medical Decision Making Patient presents here with a small area of swelling to left lateral leg no signs of abscess cellulitis ultrasound showed no DVT patient stable for discharge follow-up PCP return if worsening Medical Records I reviewed the patient's medical records. All radiology interpretation(s) finalized by discharge Discharge Plan Discharge Patient Disposition: Home Clinical Impression: Left leg swelling Condition: Stable Prescriptions: No Action lovastatin 10 mg tablet 10 mg PO DAILY cholecalciferol (vitamin D3) 1,250 mcg (50,000 unit) tablet 1,250 mcg PO .weekly albuterol sulfate 90 mcg/actuation aerosol powdr breath activated 2 inh INHALATION Q6H PRN (Reason: Shortness Of Breath) lisinopril 2.5 mg tablet 10 mg PO DAILY venlafaxine 75 mg capsule,extended release 24hr 75 mg PO DAILY (DME) blood-glucose meter [OneTouch Verio Flex Start] Kit See Rx Instructions .Route Qty: 1 3RF Rx Instructions: Check blood sugars 4 times a day. Slynd 4 mg (28) tablet 1 tab PO DAILY Qty: 84 3RF (DME) Diabetic Shoes with 3 pairs of inserts See Rx Instructions .Route .MEDSUPPLY Qty: 1 0RF Rx Instructions: As directed by [employer] [facility] famotidine 20 mg tablet 20 mg PO DAILY PRN metoprolol succinate 25 mg tablet extended release 24 hr 25 mg PO DAILY ondansetron 4 mg tablet,disintegrating 4 mg PO Q8H PRN (Reason: nausea and vomiting) Qty: 14 0RF (DME) OneTouch Ultra Test Strip See Rx Instructions .Route Qty: 100 3RF Rx Instructions: Check BS 4 times a day. (DME) lancets [OneTouch UltraSoft Lancets] Misc See Rx Instructions .Route Qty: 300 3RF Rx Instructions: Check BS 3 times a day. ([facility] [place] Dexcom G7 Network Cable Installer Misc See Rx Instructions .ROUTE .COMPLEX Qty: 1 0RF Dose Instruction: DIRECTED Rx Instructions: DIRECTED ([facility] [place]) tuberculin-allergy syringes 1 mL 26 gauge x 3/8 syringe See Rx Instructions .Route Qty: 100 0RF Rx Instructions: As directed supply preferred insulin glargine [Lantus Solostar U-100 Insulin] 100 unit/mL (3 mL) insulin pen See Rx Instructions .ROUTE .COMPLEX Qty: 144 0RF Dose Instruction: inject 80 units (0.8ml) SUBCUTANEOUSLY TWICE DAILY Rx Instructions: inject 80 units (0.8ml) SUBCUTANEOUSLY TWICE DAILY (DME) Dexcom G7 Sensor Device See Rx Instructions .ROUTE .COMPLEX Qty: 3 1RF Dose Instruction: CHANGE every 10 DAYS Rx Instructions: CHANGE every 10 DAYS glipizide 10 mg tablet See Rx Instructions .ROUTE .COMPLEX Qty: 90 0RF Dose Instruction: TAKE 1 TABLET BY MOUTH THREE TIMES DAILY NEEDED Rx Instructions: TAKE 1 TABLET BY MOUTH THREE TIMES DAILY NEEDED melatonin 5 mg Capsule 5 mg PO BEDTIME PRN (Reason: Sleep) EpiPen 2-Leo 0.3 mg/0.3 mL auto-injector 0.3 mg IM Q10M PRN (Reason: anaphylaxis) Qty: 2 2RF Rx Instructions: for 3 doses Discharge Orders: Discharge ED (Routine); Ordered 03/16/24 Ordered By: Stefan Dunn Referrals: Teodoro Vasquez MD [Primary Care Provider] - 4-7 days Discharge Diet: Advance as tolerated Discharge Activity: Resume usual activity Patient Instructions: Leg Edema (ED) Coding Level of Care Code ED Slot Shift Manager for Gosia Starkey
[2024-03-16 09:12] VITALS: BP 99/62; PULSE 91; O2SAT 96
[2024-03-16 10:19] VITALS: BP 105/64; PULSE 93; O2SAT 96
== END 2024-03-16 10:21 | disposition home or self-care (01) ==
PROVIDERS: Emergency Provider Emergency Medicine; PCP Family Medicine
DX: M79.89 Other specified soft tissue disorders (principal); Z79.84 Long term (current) use of oral hypoglycemic drugs; Z79.4 Long term (current) use of insulin; E78.5 Hyperlipidemia, unspecified; I10 Essential (primary) hypertension; E11.9 Type 2 diabetes mellitus without complications
CPT/HCPCS: 76882; 93971; 99284

== ENCOUNTER 2024-06-09 19:16 | Emergency (ER) | payer BC, MEDICAID, SELFPAY ==
[2024-06-09 19:17] VITALS: BP 109/67; PULSE 119; RESP 20; TEMP 36.8; O2SAT 96; BMI 45.8
--- NOTE | 2024-06-09 19:27 | ED_ITS ---
HPI - Nausea/Vomiting/Diarrhea 2 General: Chief complaint: Nausea/Vomiting/Diarrhea Stated complaint: n/v/d fainting Time Seen by Provider: 06/09/24 19:24 Source: patient Mode of arrival: ambulatory Limitations: no limitations History of Present Illness: 24-year-old female who states that she b een having nausea vomiting and diarrhea since last night states she is also had a syncopal event during vomiting and feels dehydrated she has had sick contacts with similar. Denies any fevers. Associated nausea: Yes Associated symtoms: Reports nausea and syncope; Denies chest pain or headache(s) Related Data Home Medications Medication Instructions Recorded Confirmed lisinopril 2.5 mg tablet 10 mg PO DAILY 03/10/21 03/16/24 venlafaxine 75 mg capsule,extended 150 mg PO DAILY 03/10/21 03/16/24 release 24 hr melatonin 5 mg capsule 5 mg PO BEDTIME PRN Sleep 08/12/21 03/16/24 famotidine 20 mg tablet 20 mg PO DAILY PRN Stomach Upset 03/01/23 03/16/24 albuterol sulfate 2.5 mg/3 mL 1 mg inhalation TID 03/16/24 03/16/24 (0.083 %) solution for nebulization fluocinolone 0.01 % scalp oil and 1 applic topical DAILY 03/16/24 03/16/24 shower cap glipizide 10 mg tablet 10 mg PO TID 03/16/24 03/16/24 lovastatin 40 mg tablet 40 mg PO DAILY 03/16/24 03/16/24 metoprolol succinate 50 mg 50 mg PO BID 03/16/24 03/16/24 tablet,extended release 24 hr naproxen 500 mg tablet 500 mg PO Q12H 03/16/24 03/16/24 Previous Rx's Medication Instructions Recorded blood-glucose meter (OneTouch #1 ea 03/10/21 Verio Flex Start kit) blood sugar diagnostic (OneTouch #100 ea 05/12/21 Ultra Test strips) epinephrine 0.3 mg/0.3 mL 0.3 mg (0.3 mL) IM Q10M PRN 11/23/21 injection, auto-injector (EpiPen anaphylaxis #2 ea 2-Leo) lancets (OneTouch UltraSoft #300 ea 01/08/22 Lancets) Diabetic Shoes with 3 pairs of #1 ea 12/28/22 inserts blood-glucose meter,continuous #1 ea 05/06/23 (Dexcom G7 Conduit Bender) tuberculin-allergy syringes 1 mL #100 ea 09/01/23 26 gauge x 3/8 insulin glargine 100 unit/mL (3 See Rx Instructions .Route 12/28/23 mL) subcutaneous pen (Lantus .COMPLEX #144 mL Solostar U-100 Insulin) blood-glucose sensor (Dexcom G7 #3 ea 03/20/24 Sensor device) drospirenone (contraceptive) 4 mg 1 tab PO DAILY #84 tabs 05/16/24 (28) tablet (Slynd) ondansetron 4 mg disintegrating 4 mg PO Q6H PRN nausea and 06/09/24 tablet vomiting #14 tabs Allergies Allergy/AdvReac Type Severity Reaction Status Date / Time No Known Allergies Allergy Verified 09/13/23 08:57 Review of Systems 2 Const: Denies: fever(s), chills, body aches or change in appetite ENMT: Denies: throat pain or dental pain Card: Reports: syncope; Denies: chest pain Resp: Denies: dyspnea GI: Reports: nausea and vomiting; Denies: abdominal pain or diarrhea Musc: Denies: neck pain or back pain Skin/Breast: Denies: rash Neuro: Denies: headache(s) PFSH ED 2 PFSH: Medical History No significant past medical history neghx: thyroid,dvt/pe PCP: [facility] ADD (attention deficit disorder) Asthma Hyperlipidemia Hypertension Type 2 diabetes mellitus Surgical History H/O wisdom tooth extraction (~07/2019) History of cholecystectomy (~06/07/17) Family History Father Diabetes Hyperlipidemia Hypertension Mother Diabetes Grandfather Diabetes Maternal Hyperlipidemia Paternal Hypertension Paternal Maternal Heart disease Paternal Grandmother Hyperlipidemia Maternal grandmother Hypertension Paternal Maternal Stroke Maternal grandmother Paternal grandmother Breast cancer Maternal great grandmother--dx age unknown Paternal grandmother--dx age unknown Family/Other Hyperlipidemia Paternal aunt Breast cancer Paternal aunt--dx age unknown Denies family history of Colon cancer Ovarian cancer Family history of thyroid problem Uterine cancer Physical Exam 2 Const: COMMON NORMALS: no acute distress, patient oriented x3 and healthy appearing HENMT: COMMON NORMALS: normocephalic and atraumatic HEAD & SCALP: n ormocephalic and atraumatic Eye: COMMON NORMALS: conjunctivae normal CONJUNCTIVA: Yes conjunctivae normal Neck/C-Spine: COMMON NORMALS: full ROM and supple Chest: COMMONS NORMALS: normal inspection of the chest Resp: COMMON NORMALS: normal respiratory effort, No retractions, No use of accessory muscles and clear to auscultation bilaterally AUSCULTATION: clear to auscultation bilaterally Cardio: COMMON NORMALS: regular rhythm and No murmurs present (Cardio) R ATE: tachycardic RHYTHM: regular rhythm GI: COMMON NORMALS: Normal to inspection, nondistended, normoactive bowel sounds present, Soft to palpation, non-tender and no masses PALPATION: Yes Soft to palpation Extremity: COMMON NORMALS: normal to inspection and full ROM Neuro: COMMON NORMALS: patient oriented x3, moves all extremities and no focal motor deficits Psych: COMMON NORMALS: mental status grossly normal, Normal thought process present and cooperative THOUGHT PROCESS: Normal thought process present Skin: COMMON NORMALS: no rashes or lesions noted and no wounds GENERAL SKIN EXAM: no rashes or lesions noted Course 2 Vital Signs: Vital signs: Vital Signs Temperature 98.3 F 06/09/24 19:17 Pulse Rate 118 H 06/09/24 20:35 Respiratory Rate 14 06/09/24 20:35 Blood Pressure 120/71 06/09/24 20:35 Pulse Oximetry 99 06/09/24 20:35 Oxygen Delivery Me thod Room Air 06/09/24 20:35 MDM - Nausea/Vomiting/Diarrhea Medical Decision Making Patient presents here with vomiting is likely viral in origin blood work is normal CT showed no acute findings at inform her of the incidental findings and she is to follow-up with PCP for those we will prescribe her Zofran she is to return if worsening. Medical Records I reviewed the patient's medical records. Lab Data I reviewed the patient's lab results. 06/09/24 19:40 06/09/24 19:40 Radiology Impressions Abdomen/Pelvis CT 06/09/24 19:54 IMPRESSION: 1. Diffuse hepatic steatosis. 2. Splenomegaly. 3. Presacral soft tissue masses detailed above. Certain. Differential diagnosis includes a myxoma as well as a neurogenic tumor. An aggressive lesion is felt to be less likely, but cannot be entirely excluded. Laboratory Results WBC 19.00 10^3/uL (3.29-11.43) H 06/09/24 19:40 RBC 5.56 10^6/uL (3.85-5.65) 06/09/24 19:40 Hgb 15.20 g/dL (11.27-16.99) 06/09/24 19:40 Hct 45.1 % (36-47) 06/09/24 19:40 MCV 81.1 fl (85-98) L 06/09/24 19:40 MCH 27.3 pg (27-33) 06/09/24 19:40 MCHC 33.7 g/dL (30-55) 06/09/24 19:40 RDW 15.3 % (12.1-15.1) H 06/09/24 19:40 Plt Count 493 10^3/cmm (157-399) H 06/09/24 19:40 MPV 9.7 fL (7.4-10.4) 06/09/24 19:40 Neut % (Auto) 91.3 % 06/09/24 19:40 Lymph % (Auto) 5.0 % 06/09/24 19:40 Gooding % (Auto) 2.7 % 06/09/24 19:40 Eos % (Auto) 0.3 % 06/09/24:40 Baso % (Auto) 0.2 % 06/09/24 19:40 Neut # (Auto) 17.34 10^3/uL (1.8-7.7) H 06/09/24 19:40 Lymph # (Auto) 1.0 10^3/uL (0.8-4.8) 06/09/24 19:40 Gooding # (Auto) 0.5 10^3/uL (0.2-0.9) 06/09/24 19:40 Eos # (Auto) 0.1 10^3/uL (0.0-0.8) 06/09/24 19:40 Baso # (Auto) 0.0 10^3/uL (0.0-0.1) 06/09/24 19:40 Nucleated RBC % (auto) 0 % 06/09/24 19:40 Nucleated RBCs # 0.0 /100WBC 06/09/24 19:40 Sodium 136 mmol/L (136-145) 06/09/24 19:40 Potassium 4.1 mmol/L (3.5-5.1) 06/09/24 19:40 Chloride 101 mmol/L (98-107) 06/09/24 19:40 Carbon Dioxide 20 mmol/L (22-29) L 06/09/24 19:40 Anion Gap 19.1 (5-19) H 06/09/24 19:40 BUN 9 mg/dL (6-20) 06/09/24 19:40 Creatinine 0.5 mg/dL (0.5-0.9) 06/09/24 19:40 GFR Calculation 154.3 mL/min (90-130) H 06/09/24 19:40 Glucose 338 mg/dL (65-115) H 06/09/24 19:40 Calculated Osmolality 294 mOsm/kg (285-295) 06/09/24 19:40 Calcium 9.3 mg/dL (8.5-10.5) 06/09/24 19:40 Total Bilirubin 1.4 mg/dL (0.15-1.2) H 06/09/24 19:40 AST 21 U/L (0-32) 06/09/24 19:40 ALT 34 U/L (0-33) H 06/09/24 19:40 Alkaline Phosphatase 97 U/L (35-105) 06/09/24 19:40 Total Protein 7.8 g/dL (6.6-8.7) 06/09/24 19:40 Albumin 4.6 g/dL (3.5-5.2) 06/09/24 19:40 Globulin 3.2 g/dL (1.3-4.6) 06/09/24 19:40 Lipase 17 U/L (13-60) 06/09/24 19:40 HCG, Qual Negative (Negative) 06/09/24 19:40 Urine Color Yellow (Yellow) 06/09/24 20:01 Urine Appearance Turbid (CLEAR) A 06/09/24 20:01 Urine pH 5.5 (5-7) 06/09/24 20:01 Ur Specific Emma 1.050 (1.005-1.030) H 06/09/24 20:01 Urine Protein 2+ (Negative) A 06/09/24 20:01 Urine Glucose (UA) 3+ (Normal) H 06/09/24 20:01 Urine Ketones 3+ (Negative) H 06/09/24 20:01 Urine Blood Neg (Negative) 06/09/24 20: Urine Nitrate Negative (Negative) 06/09/24 20: Urine Bilirubin Neg (Negative) 06/09/24 20:01 Urine Urobilinogen 1.0 mg/dL (Negative) 06/09/24 20:01 Ur Leukocyte Esterase Negative (Negative) 06/09/24 20: Urine RBC >100 /hpf (0-2) H 06/09/24 20:01 Urine WBC 6-10 /hpf (0-5) 06/09/24 20:01 Ur Squamous Epith Cells 21-50 /hpf (0-5) 06/09/24 20: Amorphous Sediment Not Reportable 06/09/24 20:01 Urine Bacteria 4+ /hpf (NONE) H 06/09/24 20:01 Hyaline Casts 2.05 /lpf 06/09/24 20:01 Urine Yeast 1+ /hpf H 06/09/24 20:01 All radiology interpretation(s) finalized by discharge Discharge Plan Discharge Patient Disposition: Home Clinical Impression: Vomiting Qualifiers: Vomiting type: unspecified Nausea presence: with nausea Qualified Code(s): R 11.2 - Nausea with vomiting, unspecified Condition: Stable Prescriptions: New ondansetron 4 mg tablet,disintegrating 4 mg PO Q6H PRN (Reason: nausea and vomiting) Qty: 14 0RF No Action lisinopril 2.5 mg tablet 10 mg PO DAILY venlafaxine 75 mg capsule,extended release 24hr 150 mg PO DAILY Rx Instructions: take 2 capusles by mouth daily (DME) blood-glucose meter [OneTouch Verio Flex Start] Kit See Rx Instructions .Route Qty: 1 3RF Rx Instructions: Check blood sugars 4 times a day. (DME) Diabetic Shoes with 3 pairs of inserts See Rx Instructions .Route .MEDSUPPLY Qty: 1 0RF Rx Instructions: As directed by [employer] [facility] famotidine 20 mg tablet 20 mg PO DAILY PRN (Reason: Stomach Upset) (DME) OneTouch Ultra Test Strip See Rx Instructions .Route Qty: 100 3RF Rx Instructions: Check BS 4 times a day. (DME) lancets [OneTouch UltraSoft Lancets] Misc See Rx Instructions .Route Qty: 300 3RF Rx Instructions: Check BS 3 times a day. [place] [place] Dexcom G7 Conduit Bender Misc See Rx Instructions .ROUTE .COMPLEX Qty: 1 0RF Dose Instruction: DIRECTED Rx Instructions: DIRECTED [place] [place] tuberculin-allergy syringes 1 mL 26 gauge x 3/8 syringe See Rx Instructions .Route Qty: 100 0RF Rx Instructions: As directed supply preferred insulin glargine [Lantus Solostar U-100 Insulin] 100 unit/mL (3 mL) insulin pen See Rx Instructions .ROUTE .COMPLEX Qty: 144 0RF Dose Instruction: inject 80 units (0.8ml) SUBCUTANEOUSLY TWICE DAILY Rx Instructions: inject 80 units (0.8ml) SUBCUTANEOUSLY TWICE DAILY [place] [place] Dexcom G7 Sensor Device See Rx Instructions .ROUTE .COMPLEX Qty: 3 0RF Dose Instruction: CHANGE every 10 DAYS Rx Instructions: CHANGE every 10 DAYS Slynd 4 mg (28) tablet 1 tab PO DAILY Qty: 84 3RF melatonin 5 mg Capsule 5 mg PO BEDTIME PRN (Reason: Sleep) epinephrine [EpiPen 2-Leo] 0.3 mg/0.3 mL auto-injector 0.3 mg IM Q10M PRN (Reason: anaphylaxis) Qty: 2 2RF Rx Instructions: for 3 doses albuterol sulfate 2.5 mg /3 mL (0.083 %) solution for nebulization 1 mg inhalation TID metoprolol succinate 50 mg tablet extended release 24 hr 50 mg PO BID lovastatin 40 mg tablet 40 mg PO DAILY naproxen 500 mg tablet 500 mg PO Q12H fluocinolone and shower cap 0.01 % oil 1 applic TOPICAL DAILY glipizide 10 mg tablet 10 mg PO TID Discharge Orders: Discharge ED (Routine); Ordered 06/09/24 Ordered By: Stefan Dunn Referrals: Teodoro Vasquez MD [Primary Care Provider] - 4-7 days Discharge Diet: Advance as tolerated Discharge Activity: Resume usual activity Patient Instructions: Acute Nausea and Vomiting (ED) Coding Level of Care Code ED Predictive Maintenance Specialist for Gosia Starkey
[2024-06-09] MEDS: sodium chloride 0.9% 1,000 ML 999 ML IV (19:43)
[2024-06-09] MEDS: metoclopramide 5 mg/mL SDV 2 mL 10 MG IVP (19:43)
[2024-06-09] MEDS: diphenhydrAMINE 50 mg/mL SDV 1mL IVP (19:43)
[2024-06-09 19:48] VITALS: BP 115/84; PULSE 112; RESP 20; O2SAT 97
[2024-06-09 19:50] LABS: Basophils % 0.2 %; Eosinophils # 0.1 10^3/uL (0.0-0.8); Eosinophils % 0.3 %; Hematocrit 45.1 % (36-47); Mean Corpuscular HGB Conc 33.7 g/dL (30-55); Mean Corpuscular Hemoglobin 27.3 pg (27-33); Mean Corpuscular Volume 81.1 fl (85-98); Mean Platelet Volume 9.7 fL (7.4-10.4); Monocytes # 0.5 10^3/uL (0.2-0.9); Monocytes % 2.7 %; Neutrophils # 17.34 10^3/uL (1.8-7.7); Neutrophils % 91.3 %; Nucleated Red Blood Cells % 0 %; Platelet Count 493 10^3/cmm (157-399); Red Blood Count 5.56 10^6/uL (3.85-5.65); Red Cell Distribution Width 15.3 % (12.1-15.1)
--- NOTE | 2024-06-09 19:54 | CTR_ITS ---
PROCEDURE INFORMATION: Exam: CT Abdomen And Pelvis With Contrast Exam date and time: 06/09/2024 8:11 PM Age: 24 years old Clinical indication: Abnormal findings; Abnormal lab test; Elevated wbc; Nausea and vomiting; Prior surgery; Surgery date: 6+ months; Surgery type: Gb; Patient HX: C/O n/v/d. Wbc of 19k. TECHNIQUE: Imaging protocol: Computed tomography of the abdomen and pelvis with contrast. Radiation optimization: All CT scans at this facility use at least one of these dose optimization techniques: automated exposure control; mA and/or kV adjustment per patient size (includes targeted exams where dose is matched to clinical indication); or iterative reconstruction. Contrast material: OMNI 35O; Contrast volume: 100 ml; Contrast route: INTRAVENOUS (IV); COMPARISON: US abdomen complete* [id number] 04/29/2021 3:39 PM RADIATION DOSE METRICS: Total DLP (mGy-cm): 1437.73 FINDINGS: Liver: Diffuse hepatic steatosis. Gallbladder and biliary ducts: The gallbladder is surgically absent. Pancreas: Normal. No ductal dilation. Spleen: The spleen is enlarged measuring 18 4 cm length. Adrenal glands: Normal. No mass. Kidneys and ureters: Normal. No hydronephrosis. Stomach and bowel: Unremarkable. No obstruction. No mucosal thickening. Appendix: No evidence of appendicitis. Intraperitoneal space: Unremarkable. No free air. No significant fluid collection. Vasculature: Unremarkable. No abdominal aortic aneurysm. Lymph nodes: Unremarkable. No enlarged lymph nodes. Urinary bladder: Unremarkable as visualized. Reproductive: There is a right ovarian cyst measuring 2.2 cm. Bones/joints: The sacrum is intact without bony destruction. Soft tissues: There is a soft tissue mass anterior to distal sacrum measuring 5.6 x 4.1 x 3.9 cm. This mass is homogeneous with Hounsfield units of 35. No calcification or fat. CT/CT abdomen pelvis w con* [id number] IMPRESSION: 1. Diffuse hepatic steatosis. 2. Splenomegaly. 3. Presacral soft tissue masses detailed above. Certain. Differential diagnosis includes a myxoma as well as a neurogenic tumor. An aggressive lesion is felt to be less likely, but cannot be entirely excluded.
[2024-06-09 19:59] LABS: HCG, Serum Qual Negative (Negative)
[2024-06-09 20:07] LABS: Bacteria Urine 4+ /hpf; Hyaline Casts Urine 2.05 /lpf; RBC Urine >100 /hpf (0-2); Squamous Epithelial Cell Urine 21-50 /hpf (0-5); Universal Test for UA Present (0)
[2024-06-09 20:09] LABS: Alanine Aminotransferase 34 U/L (0-33); Albumin Level 4.6 g/dL (3.5-5.2); Alkaline Phosphatase 97 U/L (35-105); Anion Gap 19.1 (5-19); Aspartate Amino Transferase 21 U/L (0-32); Blood Urea Nitrogen 9 mg/dL (6-20); Calcium 9.3 mg/dL (8.5-10.5); Carbon Dioxide 20 mmol/L (22-29); Chloride 101 mmol/L (98-107); Creatinine Clr Calc Pharmacy 267.3708; Globulin 3.2 g/dL (1.3-4.6); Glomerular Filtration Rate 154.3 mL/min (90-130); Glucose 338 mg/dL (65-115); Lipase 17 U/L (13-60); Osmolality Calculated 294 mOsm/kg (285-295); Potassium 4.1 mmol/L (3.5-5.1); Sodium 136 mmol/L (136-145); Total Bilirubin 1.4 mg/dL (0.15-1.2); Total Protein 7.8 g/dL (6.6-8.7)
[2024-06-09] MEDS: iohexol 350 mg/mL 500 mL Btl (per mL) IV (20:14)
[2024-06-09 20:16] LABS: Urine Appearance Turbid (CLEAR); Urine Color Yellow (Yellow)
[2024-06-09 20:17] LABS: Add Urine Microscopic? YES; Bilirubin Urine Neg (Negative); Blood Urine Neg (Negative); Glucose Urine UA 3+ (Normal); Ketones Urine 3+ (Negative); Leukocyte Esterase Urine Negative (Negative); Nitrate Urine Negative (Negative); Protein Urine 2+ (Negative); pH Urine 5.5 (5-7)
[2024-06-09 20:18] LABS: Add Urine Culture? Yes
[2024-06-09 20:35] VITALS: BP 120/71; PULSE 118; RESP 14; O2SAT 99
[2024-06-09 21:31] VITALS: BP 121/76; PULSE 115; RESP 16; O2SAT 97
== END 2024-06-09 21:33 | disposition home or self-care (01) ==
PROVIDERS: Emergency Provider Emergency Medicine; PCP Family Medicine
DX: R11.2 Nausea with vomiting, unspecified (principal); Z79.4 Long term (current) use of insulin; E78.5 Hyperlipidemia, unspecified; I10 Essential (primary) hypertension; E11.9 Type 2 diabetes mellitus without complications
CPT/HCPCS: 74177; 80053; 81001; 83690; 84703; 85025; 87086; 96361; 96374; 96375; 99285; J1200; J2765; J7030

== ENCOUNTER 2024-10-24 05:13 | Emergency (ER) | payer MEDICAID, SELFPAY ==
[2024-10-24 05:17] VITALS: BP 124/83; PULSE 119; RESP 18; TEMP 37.2; O2SAT 97; BMI 43.7
--- NOTE | 2024-10-24 05:46 | W.ED.SKABFB ---
HPI - Skin/Abscess/Foreign Bdy General: Chief complaint: Skin/Abscess/Foreign Body Stated complaint: Lump on Middle Of Back Time Seen by Provider: 10/24/24 05:29 History of Present Illness: 24-year-old female who presents to the emergency room with a carbuncle on her back that has progressively worsened the last few days increasingly tender. She denies any fever sweats chills patient is diabetic Related Data Home Medications ?Medication ?Instructions ?Recorded ?Confirmed lisinopril 2.5 mg tablet 10 mg PO DAILY 03/10/21 03/16/24 venlafaxine 75 mg capsule,extended 150 mg PO DAILY 03/10/21 03/16/24 release 24 hr melatonin 5 mg capsule 5 mg PO BEDTIME PRN Sleep 08/12/21 03/16/24 famotidine 20 mg tablet 20 mg PO DAILY PRN Stomach Upset 03/01/23 03/16/24 albuterol sulfate 2.5 mg/3 mL 1 mg inhalation TID 03/16/24 03/16/24 (0.083 %) solution for nebulization fluocinolone 0.01 % scalp oil and 1 applic topical DAILY 03/16/24 03/16/24 shower cap glipizide 10 mg tablet 10 mg PO TID 03/16/24 03/16/24 lovastatin 40 mg tablet 40 mg PO DAILY 03/16/24 03/16/24 metoprolol succinate 50 mg 50 mg PO BID 03/16/24 03/16/24 tablet,extended release 24 hr naproxen 500 mg tablet 500 mg PO Q12H 03/16/24 03/16/24 Previous Rx's ?Medication ?Instructions ?Recorded blood-glucose meter (OneTouch #1 ea 03/10/21 Verio Flex Start kit) blood sugar diagnostic (OneTouch #100 ea 05/12/21 Ultra Test strips) epinephrine 0.3 mg/0.3 mL 0.3 mg (0.3 mL) IM Q10M PRN 11/23/21 injection, auto-injector (EpiPen anaphylaxis #2 ea 2-Leo) lancets (OneTouch UltraSoft #300 ea 01/08/22 Lancets) Diabetic Shoes with 3 pairs of #1 ea 12/28/22 inserts blood-glucose,receiver stocker,cont #1 ea 05/06/23 (Dexcom G7 Food Demonstrator) tuberculin-allergy syringes 1 mL #100 ea 09/01/23 26 gauge x 3/8 insulin glargine 100 unit/mL (3 See Rx Instructions .Route 12/28/23 mL) subcutaneous pen (Lantus .COMPLEX #144 mL Solostar U-100 Insulin) blood-glucose sensor (Dexcom G7 #3 ea 03/20/24 Sensor device) drospirenone (contraceptive) 4 mg 1 tab PO DAILY #84 tabs 05/16/24 (28) tablet (Slynd) ondansetron 4 mg disintegrating 4 mg PO Q6H PRN nausea and 06/09/24 tablet vomiting #14 tabs sulfamethoxazole 800 1 tab PO DAILY 5 days #10 tabs 10/24/24 mg-trimethoprim 160 mg tablet (Bactrim DS) Allergies Allergy/AdvReac Type Severity Reaction Status Date / Time No Known Allergies Allergy Verified 09/13/23 08:57 PFS ED PFSH: Medical History No significant past medical history neghx: thyroid,dvt/pe PCP: [facility] ADD (attention deficit disorder) Asthma Hyperlipidemia Hypertension Type 2 diabetes mellitus Surgical History H/O wisdom tooth extraction (~07/2019) History of cholecystectomy (~06/07/17) Family History Father Diabetes Hyperlipidemia Hypertension Mother Diabetes Grandfather Diabetes Maternal Hyperlipidemia Paternal Hypertension Paternal Maternal Heart disease Paternal Grandmother Hyperlipidemia Maternal grandmother Hypertension Paternal Maternal Stroke Maternal grandmother Paternal grandmother Breast cancer Maternal great grandmother--dx age unknown Paternal grandmother--dx age unknown Family/Other Hyperlipidemia Paternal aunt Breast cancer Paternal aunt--dx age unknown Denies family history of Colon cancer Ovarian cancer Family history of thyroid problem Uterine cancer Physical Exam Const: COMMON NORMALS: no acute distress GENERAL APPEARANCE: cooperative and comfortable ORIENTATION/CONSCIOUSNESS: Yes awake, Yes oriented to person, Yes oriented to place and Yes oriented to time HENMT: COMMON NORMALS: normocephalic, atraumatic and hearing grossly normal bilaterally HEAD & SCALP: normocephalic and atraumatic Resp: COMMON NORMALS: normal respiratory effort, No retractions, No use of accessory muscles and clear to auscultation bilaterally AUSCULTATION: clear to auscultation bilaterally Cardio: COMMON NORMALS: regular rate, regular rhythm and No murmurs present (Cardio) RATE: regular rate RHYTHM: regular rhythm Extremity: COMMON NORMALS: normal to inspection, capillary refill normal, no clubbing, cyanosis or edema, no calf tenderness and no pedal edema Neuro: SENSORIUM/ORIENTATION: Yes oriented to person, Yes oriented to place and Yes oriented to time Skin: OTHER: Inflamed area with pointing of a abscess in the mid back it is tender to touch mildly indurated. Incision and drainage as per procedure note. Procedures Abscess I/D Site: back Local Anesthetic: lidocaine 1% and with epi Amount of anesthesia used (mL): 2 Technique: incised with #11 blade (Wound probed with cotton swab to break up septations. No further purulent drainage) Amount of fluid expressed (mL): 3 Packing used?: plain Course Vital Signs: Vital signs: Vital Signs Temperature 99.0 F 10/24/24 05:17 Pulse Rate 96 10/24/24 05:58 Respiratory Rate 18 10/24/24 05:58 Blood Pressure 112/81 10/24/24 05:58 Pulse Oximetry 97 10/24/24 05:58 Oxygen Delivery Me thod Room Air 10/24/24 05:56 MDM - Skin/Abscess/Foreign Bdy Medicial Decision Making Incision and drainage as per procedure note a 1 and half centimeter incision was made wound was probed there was several septations which were opened with a cotton swab. Purulent drainage was cultured. Approximately 2 and half inches of packing placed in the wound. This should be removed tomorrow by primary care physician likely will not need repacking. Started on Bactrim. Return if has further problems. No radiology studies performed this visit Discharge Plan Discharge Patient Disposition: Home Clinical Impression: Carbuncle of back Condition: Stable Prescriptions: New sulfamethoxazole-trimethoprim [Bactrim DS] 800-160 mg tablet 1 tab PO DAILY 5 Days Qty: 10 0RF No Action lisinopril 2.5 mg tablet 10 mg PO DAILY venlafaxine 75 mg capsule,extended release 24hr 150 mg PO DAILY Rx Instructions: take 2 capusles by mouth daily (DME) blood-glucose meter [OneTouch Verio Flex Start] Kit See Rx Instructions .Route Qty: 1 3RF Rx Instructions: Check blood sugars 4 times a day. (DME) Diabetic Shoes with 3 pairs of inserts See Rx Instructions .Route .MEDSUPPLY Qty: 1 0RF Rx Instructions: As directed by [employer] [facility] [employer] famotidine 20 mg tablet 20 mg PO DAILY PRN (Reason: Stomach Upset) (DME) OneTouch Ultra Test Strip See Rx Instructions .Route Qty: 100 3RF Rx Instructions: Check BS 4 times a day. (DME) lancets [OneTouch UltraSoft Lancets] Misc See Rx Instructions .Route Qty: 300 3RF Rx Instructions: Check BS 3 times a day. [place] [place] Dexcom G7 Food Demonstrator Misc See Rx Instructions .ROUTE .COMPLEX Qty: 1 0RF Dose Instruction: DIRECTED Rx Instructions: DIRECTED [place] [place] tuberculin-allergy syringes 1 mL 26 gauge x 3/8 syringe See Rx Instructions .Route Qty: 100 0RF Rx Instructions: As directed supply preferred insulin glargine [Lantus Solostar U-100 Insulin] 100 unit/mL (3 mL) insulin pen See Rx Instructions .ROUTE .COMPLEX Qty: 144 0RF Dose Instruction: inject 80 units (0.8ml) SUBCUTANEOUSLY TWICE DAILY Rx Instructions: inject 80 units (0.8ml) SUBCUTANEOUSLY TWICE DAILY [place] [place] Dexcom G7 Sensor Device See Rx Instructions .ROUTE .COMPLEX Qty: 3 0RF Dose Instruction: CHANGE every 10 DAYS Rx Instructions: CHANGE every 10 DAYS Slynd 4 mg (28) tablet 1 tab PO DAILY Qty: 84 3RF melatonin 5 mg Capsule 5 mg PO BEDTIME PRN (Reason: Sleep) ondansetron 4 mg tablet,disintegrating 4 mg PO Q6H PRN (Reason: nausea and vomiting) Qty: 14 0RF epinephrine [EpiPen 2-Leo] 0.3 mg/0.3 mL auto-injector 0.3 mg IM Q10M PRN (Reason: anaphylaxis) Qty: 2 2RF Rx Instructions: for 3 doses albuterol sulfate 2.5 mg /3 mL (0.083 %) solution for nebulization 1 mg inhalation TID metoprolol succinate 50 mg tablet extended release 24 hr 50 mg PO BID lovastatin 40 mg tablet 40 mg PO DAILY naproxen 500 mg tablet 500 mg PO Q12H fluocinolone and shower cap 0.01 % oil 1 applic TOPICAL DAILY glipizide 10 mg tablet 10 mg PO TID Discharge Orders: Discharge ED (Routine); Ordered 10/24/24 Ordered By: Dionicio Pope Referrals: Teodoro Vasquez MD [Primary Care Provider, [facility]] Discharge Diet: Diabetic Discharge Activity: Resume usual activity Patient Instructions: Opioid Safety, Pain Management Activity Restrictions/Additional Instructions: Thank you for choosing [facility] your healthcare needs today. It is very important that you follow up as instructed or that you return to the Emergency Department should you have concerns or if your condition changes or worsens in any way. You were seen in the emergency room with complaint of a carbuncle (skin abscess). This was incised and drained a culture was done. A small amount of packing was left in place you should follow-up with your doctor tomorrow to have this packing removed. I do not expect this to need repacking tomorrow. It should be able to be left open to drain. It likely will continue to drain the next few days. We also started you on oral antibiotics 1 pill twice a day for 5 days Print Language: Macanese Coding Level of Care Code ED Supervisor Of Research for Gosia Starkey
[2024-10-24 05:56] VITALS: PULSE 95; RESP 18; O2SAT 95
[2024-10-24 05:58] VITALS: BP 112/81; PULSE 96; RESP 18; O2SAT 97
== END 2024-10-24 05:59 | disposition home or self-care (01) ==
PROVIDERS: Emergency Provider Family Medicine; PCP Family Medicine
DX: L02.232 Carbuncle of back [any part, except buttock and flank] (principal); E11.9 Type 2 diabetes mellitus without complications; E78.5 Hyperlipidemia, unspecified; I10 Essential (primary) hypertension; J45.909 Unspecified asthma, uncomplicated; Z79.899 Other long term (current) drug therapy
CPT/HCPCS: 10060; 87070; 87077; 87186; 99283

== ENCOUNTER → 2024-11-30 13:48 | Outpatient (BNVA) | payer MEDICAID, SELFPAY | PROVIDERS: PCP Family Medicine; Visit Provider Nurse Practitioner Women's Health | DX: N93.9 Abnormal uterine and vaginal bleeding, unspecified (principal); R53.83 Other fatigue | CPT/HCPCS: 80053; 82306; 82728; 83540; 84146; 84439; 84443; 84481; 85025 ==

== ENCOUNTER 2024-12-13 10:09 | Day surgery (SDC) | payer MEDICAID, SELFPAY ==
[2024-12-13] VITALS (10 sets, daily range): BP systolic 97–140; BP diastolic 58–112; PULSE 102–115; RESP 10–17; TEMP 36.2–36.6; O2SAT 92–99; BMI 43.4
[2024-12-13 10:51] LABS: OR HCG Qualitative Urine Negative (Negative)
--- NOTE | 2024-12-13 10:52 | W.PM.OPSUD ---
Surgery/Procedure H&P Update DATE OF PROCEDURE: December 13, 2024 DATE H&P PERFORMED: 11/16/24 H&P UPDATE INFORMATION: I have reviewed H&P completed within last 30 days, I have examined patient prior to procedure and No changes to prior documentation PREOP DIAGNOSIS: Tardy ulnar nerve palsy, cubital tunnel syndrome PLANNED PROCEDURE: Operation Date: 12/13/24 11:50 Proposed Procedures p Ulna Nerve Decompression(Right) - Jose Lynch MD
--- NOTE | 2024-12-13 10:53 | P.ANES_ITS ---
Anesthesia Procedures Procedure/Date: 12/13/24
--- NOTE | 2024-12-13 10:53 | ANES.PROC ---
Anesthesia Procedures Procedure/Date: 12/13/24
[2024-12-13] MEDS: insulin regular-human 100 units/1 mL 5 UNIT IVP (10:55)
--- NOTE | 2024-12-13 10:58 | ANES.PREANE2 ---
Pre-Anesthetic Assessment Height/Weight: Height 5 ft 9 in Weight 294 lb Temp Pulse Resp BP Pulse Ox O2 Del Method 97.8 F 115 H 17 135/112 97 Room Air 12/13/24 10:32 12/13/24 10:32 12/13/24 10:32 12/13/24 10:32 12/13/24 10:32 12/13/24 10:32 Preop Diagnosis: Tardy ulnar nerve palsy, cubital tunnel syndrome Operation Date: 12/13/24 11:50 Proposed Procedures p Ulna Nerve Decompression(Right) - Jose Lynch MD Was Beta Ana María taken within 24 hours: N/A Was Clonidine taken within 24 hours: N/A Last intake: Intake Last Liquid Date 12/12/24 Last Liquid Time 23:59 Last Solid Date 12/12/24 Last Solid Time 22:00 Social No alcohol and No tobacco Exam alert, oriented x 3, clear to auscultation bilaterally and regular rate & rhythm Airway Submandibular: within normal limits Cervical ROM: within normal limits Mallampati: Class III Dentition: full Anesthetic Plan ASA status: 3 Anesthesia: General and Regional (specify below) Other: No prior issues with anesthesia NPO since yesterday evening BMI 43 History of GERD, controlled with Pepcid IDDM, preop BS 266. Will give insulin Hypertension on metoprolol, taken last night test negative Plan for general anesthesia with preop nerve block Medications/Allergies Home Medications ?Medication ?Instructions ?Recorded ?Confirmed ?Last Taken ?Type blood-glucose meter (OneTouch #1 ea 03/10/21 12/07/24 Unknown Rx Verio Flex Start kit) venlafaxine 75 mg capsule,extended 150 mg PO DAILY 03/10/21 12/12/24 12/12/24 History release 24 hr blood sugar diagnostic (OneTouch #100 ea 05/12/21 12/07/24 Unknown Rx Ultra Test strips) melatonin 5 mg capsule 5 mg PO BEDTIME PRN Sleep 08/12/21 12/12/24 12/11/24 History epinephrine 0.3 mg/0.3 mL 0.3 mg (0.3 mL) IM Q10M PRN 11/23/21 12/12/24 Unknown Rx injection, auto-injector (EpiPen anaphylaxis #2 ea 2-Leo) lancets (OneTouch UltraSoft #300 ea 01/08/22 12/07/24 Unknown Rx Lancets) Diabetic Shoes with 3 pairs of #1 ea 12/28/22 12/07/24 Unknown Rx inserts famotidine 20 mg tablet 20 mg PO DAILY PRN Stomach Upset 03/01/23 12/12/24 Unknown History blood-glucose,fbi sharpshooter,cont #1 ea 05/06/23 12/07/24 Unknown Rx (Dexcom G7 Tableman) tuberculin-allergy syringes 1 mL #100 ea 09/01/23 12/07/24 Unknown Rx 26 gauge x 3/8 albuterol sulfate 2.5 mg/3 mL 1 mg inhalation TID PRN Wheezing 03/16/24 12/12/24 Unknown History (0.083 %) solution for nebulization fluocinolone 0.01 % scalp oil and 1 applic topical DAILY 03/16/24 12/12/24 12/09/24 History shower cap lovastatin 40 mg tablet 40 mg PO DAILY 03/16/24 12/12/24 12/11/24 History metoprolol succinate 50 mg 50 mg PO BID 03/16/24 12/12/24 12/12/24 18:00 History tablet,extended release 24 hr naproxen 500 mg tablet 500 mg PO Q12H 03/16/24 12/12/24 Unknown History drospirenone (contraceptive) 4 mg 1 tab PO DAILY #84 tabs 05/16/24 12/12/24 Unknown Rx (28) tablet (Slynd) blood-glucose sensor (Dexcom G7 #9 ea 11/10/24 12/07/24 Unknown Rx Sensor device) insulin regular hum U-500 conc 500 80 unit (0.16 mL) SUBCUT TID #18 mL 11/10/24 12/12/24 12/12/24 Rx unit/mL(3 mL) subcut pen (Humulin R U-500 (Conc) Insulin Kwikpen) cholecalciferol (vitamin D3) 1,250 50,000 unit PO .weekly 8 weeks #8 12/05/24 12/12/24 12/09/24 Rx mcg (50,000 unit) capsule caps Allergies Allergy/AdvReac Type Severity Reaction Status Date / Time No Known Allergies Allergy Verified 12/12/24 09:42 Current Medications Generic Name Dose Route Start Last Admin Trade Name Freq PRN Reason Stop Dose Admin Sodium Chloride 1,000 mls @ 30 mls/hr 12/13/24 10:30 12/13/24 10:48 Sodium Chloride 0.9% IV 12/14/24 10:29 30 mls/hr .Q24H AQUILES Administration PFSH Anesthesia Medical History No significant past medical history neghx: thyroid,dvt/pe PCP: [facility] ADD (attention deficit disorder) Asthma Hyperlipidemia Hypertension Type 2 diabetes mellitus Surgical History H/O wisdom tooth extraction (~07/2019) History of cholecystectomy (~06/07/17) Family History Father Diabetes Hyperlipidemia Hypertension Mother Diabetes Grandfather Diabetes Maternal Hyperlipidemia Paternal Hypertension Paternal Maternal Heart disease Paternal Grandmother Hyperlipidemia Maternal grandmother Hypertension Paternal Maternal Stroke Maternal grandmother Paternal grandmother Breast cancer Maternal great grandmother--dx age unknown Paternal grandmother--dx age unknown Family/Other Hyperlipidemia Paternal aunt Breast cancer Paternal aunt--dx age unknown Denies family history of Colon cancer Ovarian cancer Family history of thyroid problem Uterine cancer Social History Smoking and tobacco/nicotine status: unknown if used tobacco/nicotine Data Anesthesia Cardiac Studies: Echocardiogram 03/16/23 Holter Monitor 12/28/22
[2024-12-13] MEDS: ceFAZolin 3,000 MG in sodium chloride 0.9% (plus) 100 ML 200 MG IV (11:19)
--- NOTE | 2024-12-13 11:28 | ANES.PROC ---
Anesthesia Procedures Procedure/Date: 12/13/24 Right supraclavicular nerve block for ulnar entrapment Nerve Block ^: Nerve Block 1: Main Anesthesia: other (100 mcg fentanyl and 2 mg Versed) Time Out Performed: Yes Consent: requested by attending/covering physician and from patient Nerve block location: supraclavicular Anesthesia monitors applied: pulse oximetry, EKG, BP cuff and oxygen Nerve block position: supine Anesthetic Used: ropivicaine 0.5% Amount of anesthesia used (mL): 30 Ultrasound used to: recognize landmarks Nerve Stimulator Used?: Yes Interscalene/Femoral BLK: other needle (pjunk 4inch) Injection: neg aspiration of heme Patient Tolerated Procedure: well Complications: none Additional Comments: Decadron 4 mg added to block
--- NOTE | 2024-12-13 12:12 | P.OP_ITS ---
Operative Report Date of procedure: December 13, 2024 Surgeon: Jose Lynch MD Procedure: Preoperative diagnosis: 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 Postoperative diagnosis: Same Procedure: Ulnar nerve decompression of the right elbow with medial epicondylectomy Surgeon: Jose Lynch MD Principal Secretary: GALLO Nassar's assistance was necessary for help during the procedure as well as closure of the wound. Placement of dressings and transported the patient to the PACU Anesthesia: General Tourniquet time: 20 minutes at 2 and 50 mmHg Indications: Ines is a 24-year-old white female is presented to the orthopedic clinic with nerve conduction test demonstrating bilateral ulnar nerve compression at the cubital tunnel bilaterally. She failed all conservative measures and therefore after clinical exam was consistent with the nerve conduction test findings patient was offered a ulnar nerve decompression on each elbow. However, we will do 1 arm at a time so as not to handicap her too much. All risk benefits treatment alternatives discussed with her. She is understand that she may have permanent damage to the nerve already and may not resolve all the symptoms after surgery. She also understands it may take up to 17 weeks for complete recovery. Patient is agreeable to surgery at this tie Procedure: After obtaining consent patient taken to the operating room placed table supine position general anesthetic administered. Once good anesthesia was achieved right arm and shoulder were prepped and draped in usual fashion. Once drapes were placed a sterile tourniquet was applied to the proximal right arm. Surgical timeout was done at this time. Once this was completed a curvilinear incision made over the medial aspect of the right elbow directed over the medial epicondyle. Sharp dissection taken on down subcutaneous tissue electrocautery used hemostasis. Blunt sharp dissection with Metzenbaum scissors were done all the way down to the sheath covering the ulnar nerve. This was dissected away proximally and all tissue was debrided away from there several centimeters proximal to the medial epicondyle. At the level of the left epicondyle tissue was very thickened around the ulnar nerve and compressing it quite a bit. Once this was opened and stripped away was noted that the ulnar nerve was somewhat thinned and compressed. Dissection was taken on down into the muscle bellies of the forearm to further decompress this. Was noted that the nerve was being entrapped behind the medial epicondyle with elbow flexion therefore at this time ulnar nerve was held out away and periosteum was raised both anterior and posterior to the medial epicondyle. Subsequently a small osteotome was used to perform medial epicondylectomy. Once this was achieved And was sewed back together over the raw bone area with 3-0 Vicryl [id number] sutures. Once is completed ulnar nerve was released and found to have good mobility and no compression. Subcutaneous these were then reapproximated 3-0 Vicryl interrupted sutures. Skin was closed with skin was closed with simple running 3-0 Prolene. Wounds are cleaned and dried with Xeroform gauze sterile gauze dressing Kerlix wrap Jimi wrap for compression. Patient placed in sling for comfort. She was awakened transferred to cover room stable condition
[2024-12-13] MEDS: ondansetron 2 mg/ML SDV 2 mL 4 MG IVP (12:58)
--- NOTE | 2024-12-13 13:44 | ANE.PACU2 ---
Inpatient post-anesthesia follow up: Airway intact: Yes Vital signs: Temperature 97.1 F Pulse Rate 107 Respiratory Rate 17 Blood Pressure 140/66 Pulse Oximetry 93 Oxygen Delivery Me thod Room Air Oxygen Flow Rate 6 Fraction of Inspir ed Oxygen Hydration adequate: Yes Nausea and vomiting: No Pain level: 1 Mental status: Baseline
== END 2024-12-13 13:44 | disposition home or self-care (01) ==
PROVIDERS: Student in an Organized Health Care Education/Training Program; PCP Family Medicine; Visit Provider Orthopaedic Surgery
DX: G56.21 Lesion of ulnar nerve, right upper limb (principal); K21.9 Gastro-esophageal reflux disease without esophagitis; I10 Essential (primary) hypertension; E11.9 Type 2 diabetes mellitus without complications; E78.5 Hyperlipidemia, unspecified; J45.909 Unspecified asthma, uncomplicated; Z79.4 Long term (current) use of insulin
CPT/HCPCS: 64718; 36416; 81025; 82962; J0690; J1100; J1815; J2250; J2371; J2405; J2704; J3010; J3490; J7030; J9999

== ENCOUNTER → 2025-01-11 12:38 | Outpatient (BNVA) | payer MEDICAID, SELFPAY | PROVIDERS: PCP Family Medicine; Visit Provider Nurse Practitioner Women's Health | DX: Z12.4 Encounter for screening for malignant neoplasm of cervix (principal) | CPT/HCPCS: 88175 ==

== ENCOUNTER 2025-01-19 03:41 | Emergency (ER) | payer MEDICAID, SELFPAY ==
--- OUTSIDE RECORDS SUMMARY | 2025-01-19 03:46 | XMS_ITS | Clinical Summary ---
Author Organization [facility] Address [address] [place] [address] Care Team Providers Care Spinning Operator Name Role Phone Mikaela LIMON DO, John Robert Primary Care Provider Allergies No known active allergies Medications albuterol HFA 90 mcg inhaler Take 2 Puffs by inhalation every 6 hours as needed for Shortness of Breath. Active levalbuterol (XOPENEX) 1.25 mg/3 mL Solution for Nebulization Take 1.25 mg by inhalation one time only. Active multivit with min-folic acid (WOMEN'S MULTIVITAMIN GUMMIES) 200 mcg Tablet, Chewable Take by mouth. Active meclizine (ANTIVERT) 12.5 mg tablet Take 25 mg by mouth 3 times daily as needed for Dizziness. Active blood sugar diagnostic (FREESTYLE LITE STRIPS) Strip To be used to check blood sugar 3 times daily.. 100 Strip 11 7 Active lancets (FREESTYLE LANCETS) 28 gauge To be used to check blood sugar 3 times daily.. 100 Each 11 7 Active metFORMIN (GLUCOPHAGE) 500 mg tabletIndications :Dysmetabolic syndrome,Type 2 diabetes mellitus without complication, without long-term current use of insulin ([facility]),Morbid obesity with body mass index of 40.0-49.9 (CMS/HCC) Take 1 tablet (500 mg) only at bedtime for 7-10 days and then change to 500 mg each at breakfast and dinner times. 60 Tablet 11 7 Active Active Problems Problem Noted Date Diagnosed Date Dysmetabolic syndrome 06/23/2016 Acanthosis nigricans 06/23/2016 Abnormal weight gain 06/23/2016 Morbid obesity with body mass index of 40.0-49.9 06/23/2016 Uncomplicated type 2 diabetes mellitus 7 Abnormal thyroid function test 06/23/2016 Mild intermittent asthma 06/23/2016 Hirsutism 06/23/2016 Dyslipidemia 06/23/2016 Immunizations Immunization Administration Dates Next Due INFLUENZA VACCINE QUADRIVALENT 3 YR UP PF IM Social History Tobacco Use Types Packs/Day Years Used Date Smoking Tobacco: Never Comments No Sex and Gender Information Value Date Recorded Sex Assigned at Not on file Legal Sex Female 11:13 AM AD COPY WRITER Gender Identity Not on file Sexual Orientation Not on file Last Filed Vital Signs Vital Sign Reading Time Taken Comments Blood Pressure 118/76 06/23/2016 1:16 PM AD COPY WRITER Pulse 111 06/23/2016 11:56 AM AD COPY WRITER Temperature - - Respiratory Rate - - Oxygen Saturation - - Inhaled Oxygen Concentration - - Weight 136.8 kg (301 lb 9.4 oz) 017 11:56 AM AD COPY WRITER Height 171 cm (5' 7.32 ) 06/23/2016 11: 56 AM AD COPY WRITER Body Mass Index 46.78 06/23/2016 11:56 AM AD COPY WRITER Plan of Treatment Health Maintenance Due Date Last Done Comments CHLAMYDIA SCREENING (ANNUAL) 11-24 YEARS 2013 HPV VACCINES (1 - 3-dose series) 2017 DIABETES ANNUAL FOOT EXAM 2020 DIABETES ANNUAL RETINAL EXAM 2020 DIABETES HBA1C Q 6 MONTHS 2020 06/23/2016 DIABETES MICROALBUMIN ANNUAL SCREEN 2020 LDL CHOLESTEROL ANNUAL 2020 06/23/2016 DTAP/TDAP/TD VACCINES (1 - Tdap) 2021 HEPATITIS B VACCINES (1 of 3 - 19+ 3-dose series) 01/2021 CERVICAL CANCER SCREENING 2023 HPV/Cotest (21-29) 2023 PAP SMEAR 2023 INFLUENZA VACCINE (#1) 2024 01/22/2016 Procedures Procedure Name Priority Date/Time Associated Diagnosis Comments LIPID PANEL Routine 06/23/2016 2:25 PM AD COPY WRITER Dysmetabolic syndrome Type 2 diabetes mellitus without complication, without long-term current use of insulin (CMS/HCC) Abnormal weight gain Morbid obesity with body mass index of 40.0-49.9 (CMS/HCC) POC HEMOGLOBIN A1C Routine 06/23/2016 11 :57 AM AD COPY WRITER from Last 3 Months or Most Recently Relevant to Health Maintenance Results * (ABNORMAL) LIPID PANEL (06/23/2016 2:25 PM AD COPY WRITER) CHOLESTEROL 197(H) <170 mg/dL 06/23/2016 4:[address] [facility] [place] TRIGLYCERIDE 182(H) <90 mg/dL 06/23/2016 4:[address] [facility] [place] HDL 35(L) >45 mg/dL 06/23/2016 4:[address] [facility] [place] LDL CALCULATED 126(H) <110 mg/dL 06/23/2016 4:32 PM [facility] [place] NON-HDL CHOLESTEROL 162(H) <120 mg/dL 06/23/2016 4:32 PM [facility] [place] Blood Collection / Unknown 06/23/2016 2:25 PM AD COPY WRITER 06/23/2016 2:25 PM AD COPY WRITER Narrative [facility] [place] - 06/23/2016 4:32 PM AD COPY WRITER TOTAL CHOLESTEROL mg/dL Borderline High 170-199 High >=200 TRIGLYCERIDES mg/dL Borderline High (Ages 0-9) 75-99 (Ages 10-19) 90-129 High (Ages 0-9) >=100 (Ages 10-19) >=130 HDL CHOLESTEROL mg/dL Borderline Low 40-45 Low <40 NON HDL CHOLESTEROL mg/dL Borderline High 120-144 High >=145 CALCULATED LDL mg/dL Borderline High 110-129 High >=130 National Cholesterol Education Program (NCEP) expert panel on cholesterol levels in children. (NIH 2012) us I Jonah Car MD CHEMISTRY ORDERABLES Final R esult [facility] CLIA# [id number] [address] [place] [address] * (ABNORMAL) POC HEMOGLOBIN A1C (06/23/2016 11:57 AM AD COPY WRITER) HGB A1C POC 6.8(A) 4.0 - 6.0 % [facility] Blood, capillary 06/23/2016 11:57 AM AD COPY WRITER us I Jonah Car MD POINT OF CARE TESTING Final Result [facility] CLIA# [id number] [address] [place] [address] from Last 3 Months or Most Recently Relevant to Health Maintenance Insurance [place]ICAID [place] Care Teams Spinning Operator Relationship Specialty Start Date End Date Hunetr Al III, DO [address] [place] [phone] PCP - General Family Practice 06/23/16
--- OUTSIDE RECORDS SUMMARY | 2025-01-19 03:46 | XMS_ITS | Clinical Summary ---
Author Organization [facility] Address [address] [place]on: Epic Prelude ADT [place] [address] Care Team Providers Care Safe And Vault Mechanic Name Role Phone Mikaela LIMON DO Hunter Valerio Primary Care Provider Allergies No known active allergies Medications blood sugar diagnostic Strip To be used to check blood sugar 3 times daily.. 100 Strip 11 7 Active lancets 28 gauge To be used to check blood sugar 3 times daily.. 100 Each 11 7 Active metFORMIN (GLUCOPHAGE) 500 mg tabletIndications :Dysmetabolic syndrome,Type 2 diabetes mellitus without complication, without long-term current use of insulin ([facility]),Morbid obesity with body mass index of 40.0-49.9 ([facility]) Take 1 tablet (500 mg) only at bedtime for 7-10 days and then change to 500 mg each at breakfast and dinner times. 60 Tablet 11 7 Active multivit with min-folic acid 200 mcg Tablet, Chewable Take by mouth. Active meclizine (ANTIVERT) 12.5 mg tablet Take 25 mg by mouth 3 times daily as needed for Dizziness. Active levalbuterol (XOPENEX) 1.25 mg/3 mL Solution for Nebulization Take 1.25 mg by inhalation one time only. Active albuterol sulfate 90 mcg/Actuation inhaler Take 2 Puffs by inhalation every 6 hours as needed for Shortness of Breath. Active Active Problems Problem Noted Date Diagnosed Date Dysmetabolic syndrome 06/23/2016 Abnormal weight gain 06/23/2016 Morbid obesity with body mass index of 40.0-49.9 06/23/2016 Acanthosis nigricans 06/23/2016 Uncomplicated type 2 diabetes mellitus 7 Abnormal thyroid function test 06/23/2016 Hirsutism 06/23/2016 Mild intermittent asthma 06/23/2016 Dyslipidemia 06/23/2016 Immunizations Immunization Administration Dates Next Due INFLUENZA VACCINE QUADRIVALENT 3 YR UP PF IM Social History Tobacco Use Types Packs/Day Years Used Date Smoking Tobacco: Never Comments Unknown Sex and Gender Information Value Date Recorded Sex Assigned at Not on file Legal Sex Female 1:59 AM FAST FOOD FRY COOK Gender Identity Not on file Sexual Orientation Not on file Last Filed Vital Signs Vital Sign Reading Time Taken Comments Blood Pressure 118/76 06/23/2016 1:16 PM FAST FOOD FRY COOK Pulse 111 06/23/2016 11:56 AM FAST FOOD FRY COOK Temperature - - Respiratory Rate - - Oxygen Saturation - - Inhaled Oxygen Concentration - - Weight 136.8 kg (301 lb 9.4 oz) 017 11:56 AM FAST FOOD FRY COOK Height 171 cm (5' 7.32 ) 06/23/2016 11: 56 AM FAST FOOD FRY COOK Body Mass Index 46.78 06/23/2016 11:56 AM FAST FOOD FRY COOK Plan of Treatment Health Maintenance Due Date Last Done Comments CHLAMYDIA SCREENING (ANNUAL) 11-24 YEARS 2013 HPV VACCINES (1 - 3-dose series) 2017 DIABETES ANNUAL FOOT EXAM 2020 DIABETES ANNUAL RETINAL EXAM 2020 DIABETES HBA1C Q 6 MONTHS 2020 06/23/2016, DIABETES MICROALBUMIN ANNUAL SCREEN 2020 LDL CHOLESTEROL ANNUAL 2020 06/23/2016 DTAP/TDAP/TD VACCINES (1 - Tdap) 2021 HEPATITIS B VACCINES (1 of 3 - 19+ 3-dose series) 2021 CERVICAL CANCER SCREENING 2023 HPV/Cotest (21-29) 2023 PAP SMEAR 2023 INFLUENZA VACCINE (#1) 2024 01/22/2016 Procedures Procedure Name Priority Date/Time Associated Diagnosis Comments LIPID PANEL Routine 06/23/2016 2:25 PM FAST FOOD FRY COOK POC HEMOGLOBIN A1C Routine 06/23/2016 11 :57 AM FAST FOOD FRY COOK from Last 3 Months or Most Recently Relevant to Health Maintenance Results * (ABNORMAL) LIPID PANEL (06/23/2016 2:25 PM FAST FOOD FRY COOK) CHOLESTEROL 197(H) <170 mg/dL 06/23/2016 4:32 PM [facility] [place] TRIGLYCERIDE 182(H) <90 mg/dL 06/23/2016 4:32 PM [facility] [place] HDL 35(L) >45 mg/dL 06/23/2016 4:32 PM [facility] [place] LDL CALCULATED 126(H) <110 mg/dL 06/23/2016 4:32 PM [facility] [place] NON-HDL CHOLESTEROL 162(H) <120 mg/dL 06/23/2016 4:32 PM [facility] [place] Blood Collection / Unknown 06/23/2016 2:25 PM FAST FOOD FRY COOK 06/23/2016 3:54 PM FAST FOOD FRY COOK Narrative [facility] [place] - 06/23/2016 4:32 PM FAST FOOD FRY COOK TOTAL CHOLESTEROL mg/dL Borderline [id number] High >=200 TRIGLYCERIDES mg/dL Borderline High (Ages 0-9) 75-99 (Ages 10-19) 90-129 High (Ages 0-9) >=100 (Ages 10-19) >=130 HDL CHOLESTEROL mg/dL Borderline Low 40-45 Low <40 NON HDL CHOLESTEROL mg/dL Borderline High 120-144 High >=145 CALCULATED LDL mg/dL Borderline High 110-129 High >=130 National Cholesterol Education Program (NCEP) expert panel on cholesterol levels in children. (NIH 2011) us I Jonah Car MD CHEMISTRY ORDERABLES Final R esult [facility] CLIA# [id number] [address] [place] [address] [facility] [place] CLIA# [id number] [address] [place] [address] * (ABNORMAL) POC HEMOGLOBIN A1C (06/23/2016 11:57 AM FAST FOOD FRY COOK) HGB A1C POC 6.8(A) 4.0 - 6.0 % [facility] [place] Blood, capillary 06/23/2016 11:57 AM FAST FOOD FRY COOK us I Jonah Car MD POINT OF CARE TESTING Final Result [facility] CLIA# [id number] [address] [place] [address] [facility] [place] CLIA# [id number] [address] [place] [address] from Last 3 Months or Most Recently Relevant to Health Maintenance Care Teams Safe And Vault Mechanic Relationship Specialty Start Date End Date Hunter Al III, DO [address] [place] [phone] PCP - General Family Practice 06/23/16
[2025-01-19 03:55] VITALS: BP 144/100; PULSE 98; RESP 18; TEMP 37.4; O2SAT 97; BMI 46.5
[2025-01-19 05:31] LABS: Hematocrit 40.3 % (36-47); Hemoglobin 13.60 g/dL (11.27-16.99); Mean Corpuscular HGB Conc 33.7 g/dL (30-55); Mean Corpuscular Hemoglobin 27.9 pg (27-33); Mean Corpuscular Volume 82.8 fl (85-98); Nucleated Red Blood Cells % 0 %; Platelet Count 488 10^3/cmm (157-399); Red Blood Count 4.87 10^6/uL (3.85-5.65); White Blood Count 14.31 10^3/uL (3.29-11.43)
[2025-01-19 05:34] VITALS: BP 148/98; PULSE 91; RESP 18; O2SAT 99
[2025-01-19 05:48] LABS: Alanine Aminotransferase 20 U/L (0-33); Albumin Level 4.4 g/dL (3.5-5.2); Alkaline Phosphatase 104 U/L (35-105); Anion Gap 16.6 (5-19); Aspartate Amino Transferase 12 U/L (0-32); Blood Urea Nitrogen 9 mg/dL (6-20); Calcium 9.4 mg/dL (8.5-10.5); Carbon Dioxide 23 mmol/L (22-29); Chloride 101 mmol/L (98-107); Creatinine Clr Calc Pharmacy 269.8984; Globulin 3.4 g/dL (1.3-4.6); Glucose 315 mg/dL (65-115); Osmolality Calculated 293 mOsm/kg (285-295); Potassium 4.6 mmol/L (3.5-5.1); Sodium 136 mmol/L (136-145); Total Protein 7.8 g/dL (6.6-8.7)
--- NOTE | 2025-01-19 06:02 | W.ED.NAVMDI ---
HPI - Nausea/Vomiting/Diarrhea General: Chief complaint: Nausea/Vomiting/Diarrhea Stated complaint: severe diarrhea, N/V abd pain Lt side Time Seen by Provider: 01/19/25 05:58 History of Present Illness: 24-year-old female presents emergency room complaint of left leg pain nausea vomiting and diarrhea. Began last evening. No hematochezia or melena. Patient took some Tylenol [id number] with no relief. Denies any dysuria urgency or frequency no previous abdominal surgeries no recent antibiotics. Associated nausea: Yes Associated symtoms: Reports nausea; Denies chest pain or dysuria Related Data Home Medications ?Medication ?Instructions ?Recorded ?Confirmed venlafaxine 75 mg capsule,extended 150 mg PO DAILY 03/10/21 01/18/25 release 24 hr melatonin 5 mg capsule 5 mg PO BEDTIME PRN Sleep 08/12/21 01/18/25 famotidine 20 mg tablet 20 mg PO DAILY PRN Stomach Upset 03/01/23 01/18/25 albuterol sulfate 2.5 mg/3 mL 1 mg inhalation TID PRN Wheezing 03/16/24 01/18/25 (0.083 %) solution for nebulization fluocinolone 0.01 % scalp oil and 1 applic topical DAILY 03/16/24 01/18/25 shower cap lovastatin 40 mg tablet 40 mg PO DAILY 03/16/24 01/18/25 metoprolol succinate 50 mg 50 mg PO BID 03/16/24 01/18/25 tablet,extended release 24 hr naproxen 500 mg tablet 500 mg PO Q12H 03/16/24 01/18/25 Previous Rx's ?Medication ?Instructions ?Recorded blood-glucose meter (OneTouch #1 ea 03/10/21 Verio Flex Start kit) blood sugar diagnostic (OneTouch #100 ea 05/12/21 Ultra Test strips) epinephrine 0.3 mg/0.3 mL 0.3 mg (0.3 mL) IM Q10M PRN 11/23/21 injection, auto-injector (EpiPen anaphylaxis #2 ea 2-Leo) lancets (OneTouch UltraSoft #300 ea 01/08/22 Lancets) Diabetic Shoes with 3 pairs of #1 ea 12/28/22 inserts blood-glucose,fruit sprayer,cont #1 ea 05/06/23 (Dexcom G7 Volunteer Services Supervisor) tuberculin-allergy syringes 1 mL #100 ea 09/01/23 26 gauge x 3/8 blood-glucose sensor (Dexcom G7 #9 ea 11/10/24 Sensor device) cholecalciferol (vitamin D3) 1,250 50,000 unit PO .weekly 8 weeks #8 12/05/24 mcg (50,000 unit) capsule caps hydrocodone 5 mg-acetaminophen 325 1 tab PO Q6H PRN pain #30 tabs 12/13/24 mg tablet insulin regular hum U-500 conc 500 See Rx Instructions .Route 12/25/24 unit/mL(3 mL) subcut pen (Humulin .COMPLEX #45 mL R U-500 (Conc) Insulin Kwikpen) drospirenone (contraceptive) 4 mg 4 mg PO DAILY #3 packets 01/11/25 (28) tablet (Slynd) mupirocin 2 % topical ointment 1 applic topical BID PRN 01/11/25 (Centany) folliculitis #22 grams promethazine 25 mg tablet 25 mg PO Q6H PRN nausea and 01/19/25 vomiting #20 tabs Allergies Allergy/AdvReac Type Severity Reaction Status Date / Time No Known Allergies Allergy Verified 01/18/25 12:51 Review of Systems Const: Denies: fever(s) or chills Card: Denies: chest pain Resp: Denies: dyspnea GI: Reports: abdominal pain, nausea, vomiting and diarrhea; Denies: hematemesis, coffee ground emesis, hematochezia or melena : Reports: flank pain; Denies: dysuria, urinary frequency or urinary urgency Musc: Denies: neck pain or back pain Skin/Breast: Denies: rash PFSH ED PFSH: Medical History No significant past medical history neghx: thyroid,dvt/pe PCP: [facility] ADD (attention deficit disorder) Asthma Hyperlipidemia Hypertension Type 2 diabetes mellitus Surgical History H/O decompression of ulnar nerve (~12/13/24) right elbow with medial epicondylectomy----Preoperative diagnosis: 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---Jose Lynch MD H/O wisdom tooth extraction (~07/2019) History of cholecystectomy (~06/07/17) Family History Father Diabetes Hyperlipidemia Hypertension Mother Diabetes Grandfather Diabetes Maternal Hyperlipidemia Paternal Hypertension Paternal Maternal Heart disease Paternal Grandmother Hyperlipidemia Maternal grandmother Hypertension Paternal Maternal Stroke Maternal grandmother Paternal grandmother Breast cancer Maternal great grandmother--dx age unknown Paternal grandmother--dx age unknown Family/Other Hyperlipidemia Paternal aunt Breast cancer Paternal aunt--dx age unknown Denies family history of Colon cancer Ovarian cancer Family history of thyroid problem Uterine cancer Social History Smoking and tobacco/nicotine status: never used tobacco/nicotine Physical Exam Const: GENERAL APPEARANCE: cooperative ORIENTATION/CONSCIOUSNESS: Yes awake, Yes oriented to person, Yes oriented to place and Yes oriented to time HENMT: COMMON NORMALS: normocephalic, atraumatic and hearing grossly normal bilaterally HEAD & SCALP: normocephalic and atraumatic Resp: COMMON NORMALS: normal respiratory effort, No retractions, No use of accessory muscles and clear to auscultation bilaterally AUSCULTATION: clear to auscultation bilaterally Cardio: COMMON NORMALS: regular rate, regular rhythm and No murmurs present (Cardio) RATE: regular rate RHYTHM: regular rhythm GI: COMMON NORMALS: Soft to palpation and No hepatosplenomegaly present AUSCULTATION: Yes normoactive bowel sounds PALPATION: Yes Soft to palpation, No Tenderness to palpation present (GI), No Guarding due to palpation present (GI) and Yes No hepatosplenomegaly present Extremity: COMMON NORMALS: normal to inspection, capillary refill normal, no clubbing, cyanosis or edema, no calf tenderness and no pedal edema Neuro: SENSORIUM/ORIENTATION: Yes oriented to person, Yes oriented to place and Yes oriented to time Skin: COMMON NORMALS: no rashes or lesions noted GENERAL SKIN EXAM: no rashes or lesions noted Course Vital Signs: Vital signs: Vital Signs Temperature 99.3 F 01/19/25 03:55 Pulse Rate 100 01/19/25 07:27 Respiratory Rate 16 01/19/25 07:27 Blood Pressure 133/89 01/19/25 07:27 Pulse Oximetry 98 01/19/25 07:27 Oxygen Delivery Me thod Room Air 01/19/25 07:22 MDM - Nausea/Vomiting/Diarrhea Medical Decision Making Labs reviewed. Patient appears to have a gastroenteritis there is mild elevation of white count no signs of cystitis liver and kidney function normal blood sugar is elevated patient is a known diabetic Kurtzer follow-up with your primary care doctor to manage blood sugars. Clear liquid diet for 24 to 48 hours advance as tolerated promethazine as needed follow-up care. Medical Records I reviewed the patient's medical records. Lab Data I reviewed the patient's lab results. 01/19/25 05:27 01/19/25 05:27 Laboratory Results WBC 14.31 10^3/uL (3.29-11.43) H 01/19/25 05:27 RBC 4.87 10^6/uL (3.85-5.65) 01/19/25 05:27 Hgb 13.60 g/dL (11.27-16.99) 01/19/25 05:27 Hct 40.3 % (36-47) 01/19/25 05:27 MCV 82.8 fl (85-98) L 01/19/25 05:27 MCH 27.9 pg (27-33) 01/19/25 05:27 MCHC 33.7 g/dL (30-55) 01/19/25 05:27 RDW 14.9 % (12.1-15.1) 01/19/25 05:27 Plt Count 488 10^3/cmm (157-399) H 01/19/25 05:27 MPV 9.4 fL (7.4-10.4) 01/19/25 05:27 Neut % (Auto) 75.9 % 01/19/25 05:27 Lymph % (Auto) 19.1 % 01/19/25 05:27 [place] % (Auto) 3.8 % 01/19/25 05:27 Eos % (Auto) 0.5 % 01/19/25 05:27 Baso % (Auto) 0.4 % 01/19/25 05:27 Neut # (Auto) 10.85 10^3/uL (1.8-7.7) H 01/19/25 05:27 Lymph # (Auto) 2.7 10^3/uL (0.8-4.8) 01/19/25 05:27 [place] # (Auto) 0.5 10^3/uL (0.2-0.9) 01/19/25 05:27 Eos # (Auto) 0.1 10^3/uL (0.0-0.8) 01/19/25 05:27 Baso # (Auto) 0.1 10^3/uL (0.0-0.1) 01/19/25 05:27 Nucleated RBC % (auto) 0 % 01/19/25 05:27 Nucleated RBCs # 0.0 /100WBC 01/19/25 05:27 Sodium 136 mmol/L (136-145) 01/19/25 05:27 Potassium 4.6 mmol/L (3.5-5.1) 01/19/25 05:27 Chloride 101 mmol/L (98-107) 01/19/25 05:27 Carbon Dioxide 23 mmol/L (22-29) 01/19/25 05:27 Anion Gap 16.6 (5-19) 01/19/25 05:27 BUN 9 mg/dL (6-20) 01/19/25 05:27 Creatinine 0.5 mg/dL (0.5-0.9) 01/19/25 05:27 GFR Calculation 154.3 mL/min (90-130) H 01/19/25 05:27 Glucose 315 mg/dL (65-115) H 01/19/25 05:27 Calculated Osmolality 293 mOsm/kg (285-295) 01/19/25 05:27 Calcium 9.4 mg/dL (8.5-10.5) 01/19/25 05:27 Total Bilirubin 0.6 mg/dL (0.15-1.2) 01/19/25 05:27 AST 12 U/L (0-32) 01/19/25 05:27 ALT 20 U/L (0-33) 01/19/25 05:27 Alkaline Phosphatase 104 U/L (35-105) 01/19/25 05:27 Total Protein 7.8 g/dL (6.6-8.7) 01/19/25 05:27 Albumin 4.4 g/dL (3.5-5.2) 01/19/25 05:27 Globulin 3.4 g/dL (1.3-4.6) 01/19/25 05:27 Urine Color Yellow (Yellow) 01/19/25 05:50 Urine Appearance Clear (CLEAR) 01/19/25 05:50 Urine pH 5.5 (5-7) 01/19/25 05:50 Ur Specific [place] 1.030 (1.005-1.030) 01/19/25 05:50 Urine Protein Negative (Negative) 01/19/25 05:50 Urine Glucose (UA) 3+ (Normal) H 01/19/25 05:50 Urine Ketones Trace (Negative) 01/19/25 05:50 Urine Blood Negative (Negative) 01/19/25 05:50 Urine Nitrate Negative (Negative) 01/19/25 05:50 Urine Bilirubin Negative (Negative) 01/19/25 05:50 Urine Urobilinogen 1.0 mg/dL (Negative) 01/19/25 05:50 Ur Leukocyte Esterase Negative (Negative) 01/19/25 05:50 Urine RBC 0-2 /hpf (0-2) 01/19/25 05:50 Urine WBC 0-5 /hpf (0-5) 01/19/25 05:50 Ur Squamous Epith Cells 6-10 /hpf (0-5) 01/19/25 05:50 Amorphous Sediment Not Reportable 01/19/25 05:50 Urine Bacteria 1+ /hpf (NONE) H 01/19/25 05:50 Hyaline Casts 0.40 /lpf 01/19/25 05:50 No radiology studies performed this visit Discharge Plan Discharge Patient Disposition: Home Clinical Impression: Gastroenteritis Type 2 diabetes mellitus Qualifiers: Diabetes mellitus intermodal truck driver insulin use: without senior care use Diabetes mellitus complication status: without complication Qualified Code(s): E11.9 - Type 2 diabetes mellitus without complications Condition: Stable Prescriptions: New promethazine 25 mg tablet 25 mg PO Q6H PRN (Reason: nausea and vomiting) Qty: 20 0RF No Action venlafaxine 75 mg capsule,extended release 24hr 150 mg PO DAILY Rx Instructions: take 2 capusles by mouth daily (DME) blood-glucose meter [OneTouch Verio Flex Start] Kit See Rx Instructions .Route Qty: 1 3RF Rx Instructions: Check blood sugars 4 times a day. (DME) Diabetic Shoes with 3 pairs of inserts See Rx Instructions .Route .MEDSUPPLY Qty: 1 0RF Rx Instructions: As directed by [facility] famotidine 20 mg tablet 20 mg PO DAILY PRN (Reason: Stomach Upset) ([facility]) Dexcom G7 Sensor Device See Rx Instructions .ROUTE .COMPLEX Qty: 9 0RF Dose Instruction: CHANGE every 10 DAYS Rx Instructions: CHANGE every 10 DAYS Slynd 4 mg (28) tablet 4 mg PO DAILY Qty: 3 3RF mupirocin [Centany] 2 % ointment 1 applic topical BID PRN (Reason: folliculitis) Qty: 22 1RF (DME) OneTouch Ultra Test Strip See Rx Instructions .Route Qty: 100 3RF Rx Instructions: Check BS 4 times a day. (DME) lancets [OneTouch UltraSoft Lancets] Misc See Rx Instructions .Route Qty: 300 3RF Rx Instructions: Check BS 3 times a day. ([facility]) Dexcom G7 Volunteer Services Supervisor Misc See Rx Instructions .ROUTE .COMPLEX Qty: 1 0RF Dose Instruction: DIRECTED Rx Instructions: DIRECTED ([facility]) tuberculin-allergy syringes 1 mL 26 gauge x 3/8 syringe See Rx Instructions .Route Qty: 100 0RF Rx Instructions: As directed supply preferred cholecalciferol (vitamin D3) 1,250 mcg (50,000 unit) capsule 50,000 unit PO .weekly 56 Days Qty: 8 0RF Humulin R U-500 (Conc) Kwikpen 500 unit/mL (3 mL) insulin pen See Rx Instructions .ROUTE .COMPLEX Qty: 45 1RF Dose Instruction: inject 80 units SUBCUTANEOUSLY THREE TIMES DAILY before meals Rx Instructions: inject 80 units SUBCUTANEOUSLY THREE TIMES DAILY before meals melatonin 5 mg Capsule 5 mg PO BEDTIME PRN (Reason: Sleep) hydrocodone-acetaminophen 5-325 mg tablet 1 tab PO Q6H PRN (Reason: pain) Qty: 30 0RF epinephrine [EpiPen 2-Leo] 0.3 mg/0.3 mL auto-injector 0.3 mg IM Q10M PRN (Reason: anaphylaxis) Qty: 2 2RF Rx Instructions: for 3 doses albuterol sulfate 2.5 mg /3 mL (0.083 %) solution for nebulization 1 mg inhalation TID PRN (Reason: Wheezing) metoprolol succinate 50 mg tablet extended release 24 hr 50 mg PO BID lovastatin 40 mg tablet 40 mg PO DAILY naproxen 500 mg tablet 500 mg PO Q12H fluocinolone and shower cap 0.01 % oil 1 applic TOPICAL DAILY Discharge Orders: Discharge ED (Routine); Ordered 01/19/25 Ordered By: Dionicio Pope Referrals: Teodoro Vasquez MD [Primary Care Provider, [facility]] Discharge Diet: Usual diet Discharge Activity: Resume usual activity Patient Instructions: Gastroenteritis (ED), Opioid Safety, Pain Management, Patient Portal & Addis Instructions Activity Restrictions/Additional Instructions: Thank you for choosing [facility] for your healthcare needs today. It is very important that you follow up as instructed or that you return to the Emergency Department should you have concerns or if your condition changes or worsens in any way. Print Language: Latvian Coding Level of Care Code ED Punchboard Filling Machine Operator for Gosia Starkey
[2025-01-19] MEDS: ondansetron 2 mg/ML SDV 2 mL 4 MG IVP (06:24)
[2025-01-19 06:45] LABS: Glucose Urine UA 3+ (Normal); Nitrate Urine Negative (Negative); Specific Gravity, Urine 1.030 (1.005-1.030)
[2025-01-19 06:49] LABS: Add Urine Microscopic? YES
[2025-01-19 07:22] VITALS: BP 133/89; PULSE 90; RESP 16; O2SAT 100
[2025-01-19 07:27] VITALS: BP 133/89; PULSE 100; RESP 16; O2SAT 98
== END 2025-01-19 07:46 | disposition home or self-care (01) ==
PROVIDERS: Student in an Organized Health Care Education/Training Program; Emergency Provider Family Medicine; PCP Family Medicine
DX: K52.9 Noninfective gastroenteritis and colitis, unspecified (principal); E11.9 Type 2 diabetes mellitus without complications; E78.5 Hyperlipidemia, unspecified; I10 Essential (primary) hypertension
CPT/HCPCS: 36415; 36416; 80053; 81001; 82962; 85025; 96361; 96374; 99284; J2405; J7030

== ENCOUNTER → 2025-02-01 11:17 | Outpatient (BNVA) | payer MEDICAID, SELFPAY | PROVIDERS: PCP Family Medicine; Visit Provider Nurse Practitioner Women's Health | DX: E55.9 Vitamin D deficiency, unspecified (principal) | CPT/HCPCS: 82306 ==

== ENCOUNTER 2025-02-04 14:35 | Emergency (ER) | payer MEDICAID, SELFPAY ==
--- OUTSIDE RECORDS SUMMARY | 2019-08-04 09:00 | XMS_ITS | Continuity of Care Document ---
Author Organization [facility] Address [id number] [address] Phone Care Team Providers Care Property Maintenance Technician Name Role Phone Unavailable Unavailable Unavailable Allergies, Adverse Reactions, Alerts Substance Reaction Status Criticality No Known Allergies Active No Inform ation Medications Medication Instructions Dosage Effective Dates (start - stop) Status Comments Lansing 7.5 mg-325 mg tablet take 1 tablet by oral route every 6 hours as needed for breakthrough pain. - Active Substitutions allowed Periogard 0.12 % mouthwash This is an oral rinse. Swish with one capful for 30 seconds then spit out. Twice a day. DO NOT EAT OR DRINK FOR ONE HOUR FOLLOWING. - Active 1 Bottle Substitutions allowed Percocet 10 mg-325 mg tablet Take 1 tablet by mouth 20 minutes prior to procedure. Take other only as directed by your doctor. - Active Substitutions allowed Xanax 0.5 mg tablet Take 1 tablet by mouth 20 minutes prior to procedure time. Take other only as directed by your doctor. - Active Generic substitution is permitted Victoza 3-Leo 0.6 mg/0.1 mL (18 mg/3 mL) subcutaneous pen injector inject (1.2MG) by subcutaneous route every day 1.2 MG - Active LANTUS SOLOSTAR (unknown strength) inject by subcutaneous route as per insulin protocol Not Available - Active LISINOPRIL (unknown strength) take 1 tablet by oral route every day Not Available - Active ZYRTEC (unknown strength) Not Available - Active PROAIR RESPICLICK (unknown strength) inhale 2 puff by inhalation route every 4 - 6 hours as needed Not Available - Active Procedures Procedure Date Removal Of Impacted Tooth Soft Tissue Removal Of Impacted Tooth Soft Tissue Removal Of Impacted Tooth Soft Tissue Removal Of Impacted Tooth Soft Tissue Non-Intravenous Conscious Sedation EDR Approval Note Limited Oral Evaluation Problem Focused EDR Approval Note Advance Directives Directive Yes / No Effective Date File Name No Information Encounters Encounter Description Practice Location Reason(s) For Visit Diagnoses Date Provider Providers Copied on Encounter [facility], [id number] [facility], [place], [place], [id number], tel:[phone] [facility] Encounter for dental exam and cleaning w/o abnormal findings No Information [facility], [id number] [facility], [place], [place], [id number], tel:[phone] [facility] Encounter for dental exam and cleaning w/o abnormal findings No Information Family History Family Member Type Diagnosis Age At Onset No Information Payers Payer name Insurance type Covered libertarian ID Authoriza tion(s) No Information Social History Type Description Quantity Date Captured Comments Alcohol Use Details No Caffeine Use Details Unknown Tobacco Use Status No Information Smoking Status No Information Sex Female Sexual Orientation Don't Know Gender Identity Female Chief Complaint And Reason For Visit No Information Reason For Referral Reason For Referral No Information History Of Present Illness Encounter Date Complaint History Of Prese nt Illness No Information Functional Status Date Functional Assessmen t No Information Instructions Date Instruction Additional Infor mation Lifestyle education Related to D ental Examination Assessments Type Assessment Date No Information Patient Care Teams Name Effective Dates (start - stop) Status Members No Information
--- NOTE | 2025-02-04 14:36 | XRR_ITS ---
PROCEDURE INFORMATION: Exam: XR Right Foot Exam date and time: 02/04/2025 2:38 PM Age: 24 years old Clinical indication: Injury or trauma; Other: Stubbed RT middle toe; Blunt trauma; Foot; Right TECHNIQUE: Imaging protocol: Radiologic exam of the right foot. Views: 3 or more views. COMPARISON: CR XR ankle RT min 3V* [id number] 12/03/2020 2:14 PM FINDINGS: Bones/joints: No acute fracture or dislocation. Soft tissues: No radiopaque foreign body. XR/XR foot RT min 3V* [id number] IMPRESSION: No acute bony findings.
--- OUTSIDE RECORDS SUMMARY | 2025-02-04 14:39 | XMS_ITS | Clinical Summary ---
Author Organization [employer] [facility] Address [address] [place]on: Epic Prelude ADT NIKA ZULUAGA [address] Care Team Providers Care Swimming Pool Maintenance Supervisor Name Role Phone Mikaela LIMON DO Hunter [...] complication, without long-term current use of insulin ([facility]),Morbid obesity with body mass index of 40.0-49.9 ([facility]) Take 1 tablet (500 mg) only at [...] on file Legal Sex Female 1:59 AM RUBBER LINER Gender Identity Not on file Sexual Orientation Not on file Last Filed Vital Signs Vital Sign Reading Time Taken Comments Blood Pressure 118/76 06/23/2016 1:16 PM RUBBER LINER Pulse 111 06/23/2016 11:56 AM RUBBER LINER Temperature - - Respiratory Rate - - Oxygen Saturation - - Inhaled Oxygen Concentration - - Weight 136.8 kg (301 lb 9.4 oz) 017 11:56 AM RUBBER LINER Height 171 cm (5' 7.32 ) 06/23/2016 11: 56 AM RUBBER LINER Body Mass Index 46.78 06/23/2016 11:56 AM RUBBER LINER Plan of Treatment Health Maintenance Due Date [...] Comments LIPID PANEL Routine 06/23/2016 2:25 PM RUBBER LINER POC HEMOGLOBIN A1C Routine 06/23/2016 11 :57 AM RUBBER LINER from Last 3 Months or Most Recently Relevant to Health Maintenance Results * (ABNORMAL) LIPID PANEL (06/23/2016 2:25 PM RUBBER LINER) CHOLESTEROL 197(H) <170 mg/dL 06/23/2016 4:32 PM [facility] [place] TRIGLYCERIDE 182(H) <90 mg/dL 06/23/2016 4:32 PM [facility] HDL 35(L) >45 mg/dL 06/23/2016 4:32 PM [facility] LDL CALCULATED 126(H) <110 mg/dL 06/23/2016 4:32 PM [facility] NON-HDL CHOLESTEROL 162(H) <120 mg/dL 06/23/2016 4:32 PM [facility] Blood Collection / Unknown 06/23/2016 2:25 PM RUBBER LINER 06/23/2016 3:54 PM RUBBER LINER Narrative [facility] [place] - 06/23/2016 4:32 PM RUBBER LINER TOTAL CHOLESTEROL mg/dL Borderline [id number] High >=200 TRIGLYCERIDES mg/dL Borderline High (Ages [...] Car MD CHEMISTRY ORDERABLES Final R esult [facility] CLIA# [id number] [address] [place] [address] [facility] CLIA# [id number] [address] [place] [address] * (ABNORMAL) POC HEMOGLOBIN A1C (06/23/2016 11:57 AM RUBBER LINER) HGB A1C POC 6.8(A) 4.0 - 6.0 % [facility] [place] Blood, capillary 06/23/2016 11:57 AM RUBBER LINER us I Jonah Car MD POINT OF CARE TESTING Final Result [facility] CLIA# [id number] [address] [place] [address] [facility] [place] CLIA# [id number] [address] [place] [address] from Last 3 Months or Most Recently Relevant to Health Maintenance Care Teams Swimming Pool Maintenance Supervisor Relationship Specialty Start Date End Date Hunter Al III, DO [address] [place] [phone] PCP - General Family Practice 06/23/16
--- OUTSIDE RECORDS SUMMARY | 2025-02-04 14:39 | XMS_ITS | Clinical Summary ---
Author Organization [facility] Address [address] [place] [address] Care Team Providers Care Bingo Checker Name Role Phone Mikeala LIMON DO, John Robert Primary Care Provider [...] complication, without long-term current use of insulin ([facility]),Morbid obesity with body mass index of [...] on file Legal Sex Female 11:13 AM WINDING DEPARTMENT SUPERVISOR Gender Identity Not on file Sexual Orientation Not on file Last Filed Vital Signs Vital Sign Reading Time Taken Comments Blood Pressure 118/76 06/23/2016 1:16 PM WINDING DEPARTMENT SUPERVISOR Pulse 111 06/23/2016 11:56 AM WINDING DEPARTMENT SUPERVISOR Temperature - - Respiratory Rate - - Oxygen Saturation - - Inhaled Oxygen Concentration - - Weight 136.8 kg (301 lb 9.4 oz) 017 11:56 AM WINDING DEPARTMENT SUPERVISOR Height 171 cm (5' 7.32 ) 06/23/2016 11: 56 AM WINDING DEPARTMENT SUPERVISOR Body Mass Index 46.78 06/23/2016 11:56 AM WINDING DEPARTMENT SUPERVISOR Plan of Treatment Health Maintenance Due Date [...] Comments LIPID PANEL Routine 06/23/2016 2:25 PM WINDING DEPARTMENT SUPERVISOR Dysmetabolic syndrome Type 2 diabetes mellitus without complication, without long-term current use of insulin (CMS/HCC) Abnormal weight gain Morbid obesity with body mass index of 40.0-49.9 (CMS/HCC) POC HEMOGLOBIN A1C Routine 06/23/2016 11 :57 AM WINDING DEPARTMENT SUPERVISOR from Last 3 Months or Most Recently Relevant to Health Maintenance Results * (ABNORMAL) LIPID PANEL (06/23/2016 2:25 PM WINDING DEPARTMENT SUPERVISOR) CHOLESTEROL 197(H) <170 mg/dL 06/23/2016 4:32 PM [facility] [place] TRIGLYCERIDE 182(H) <90 mg/dL 06/23/2016 4:32 PM [facility] HDL 35(L) >45 mg/dL 06/23/2016 4:32 PM [facility] LDL CALCULATED 126(H) <110 mg/dL 06/23/2016 4:32 PM [facility] NON-HDL CHOLESTEROL 162(H) <120 mg/dL 06/23/2016 4:32 PM [facility] Blood Collection / Unknown 06/23/2016 2:25 PM WINDING DEPARTMENT SUPERVISOR 06/23/2016 2:25 PM WINDING DEPARTMENT SUPERVISOR Narrative [facility] [place] - 06/23/2016 4:32 PM WINDING DEPARTMENT SUPERVISOR TOTAL CHOLESTEROL mg/dL Borderline High 170-199 High [...] Car MD CHEMISTRY ORDERABLES Final R esult [facility] CLIA# [id number] [address] [place] [address] * (ABNORMAL) POC HEMOGLOBIN A1C (06/23/2016 11:57 AM WINDING DEPARTMENT SUPERVISOR) HGB A1C POC 6.8(A) 4.0 - 6.0 % [facility] Blood, capillary 06/23/2016 11:57 AM WINDING DEPARTMENT SUPERVISOR us I Jonah Car MD POINT OF CARE TESTING Final Result [facility] CLIA# [id number] [address] [place] [address] from Last 3 Months or Most Recently Relevant to Health Maintenance Insurance MEDICAID [place] Care Teams Bingo Checker Relationship Specialty Start Date End Date Hunter Al III, DO [address] [place] [phone] PCP - General Family Practice 06/23/16
--- NOTE | 2025-02-04 14:47 | ED_ITS ---
HPI - General Adult General: Chief complaint: Extremity Injury, Lower Stated complaint: right middle toe stub Time Seen by Provider: 02/04/25 14:37 Source: patient Mode of arrival: ambulatory Limitations: no limitations History of Present Illness: 24-year-old female who states that she h ad stubbed her right middle toe on Wednesday states that today she woke up she had redness around the toenail that was new with increased pain. Denies any fevers denies any other injury she rates her pain a 5 out of 10 currently Associated symptoms: Deny chest pain, headache(s) or rash Related Data Home Medications ?Medication ?Instructions ?Recorded ?Confirmed venlafaxine 75 mg capsule,extended 150 mg PO DAILY 04/2001/18/25 release 24 hr melatonin 5 mg capsule 5 mg PO BEDTIME PRN Sleep 01/18/25 famotidine 20 mg tablet 20 mg PO DAILY PRN Stomach U pset 03/01/23 01/18/25 albuterol sulfate 2.5 mg/3 mL 1 mg inhalation TID PRN Wheezing 03/16/24 01/18/25 (0.083 %) solution for nebulization fluocinolone 0.01 % scalp oil and 1 applic topical TONI LY 03/16/24 01/18/25 shower cap lovastatin 40 mg tablet 40 mg PO DAILY 03/16/2412/30 metoprolol succinate 50 mg 50 mg PO BID 03/16/2401/18 tablet,extended release 24 hr naproxen 500 mg tablet 500 mg PO Q12H 03/16/2412/30 Previous Rx's ?Medication ?Instructions ?Recorded blood-glucose meter (OneTouch #1 ea 03/10/21 Verio Flex Start kit) blood sugar diagnostic (OneTouch #100 ea 05/12/21 Ultra Test strips) epinephrine 0.3 mg/0.3 mL 0.3 mg (0.3 mL) IM Q10M PRN 11/23/21 injection, auto-injector (EpiPen anaphylaxis #2 ea 2-Leo) lancets (OneTouch UltraSoft #300 ea 01/08/22 Lancets) Diabetic Shoes with 3 pairs of #1 ea 12/28/22 inserts blood-glucose,relay motorman,cont #1 ea 05/06/23 (Dexcom G7 [facility]) tuberculin-allergy syringes 1 mL #100 ea 09/01/23 26 gauge x 3/8 blood-glucose sensor (Dexcom G7 #9 ea 11/10/24 Sensor device) cholecalciferol (vitamin D3) 1,250 50,000 unit PO .nataliia morgan 8 weeks #8 12/05/24 mcg (50,000 unit) capsule caps hydrocodone 5 mg-acetaminophen 325 1 tab PO Q6H PRN pa in #30 tabs 12/13/24 mg tablet insulin regular hum U-500 conc 500 See Rx Instructions .Route 12/25/24 unit/mL(3 mL) subcut pen (Humulin .COMPLEX #45 mL R U-500 (Conc) Insulin Kwikpen) drospirenone (contraceptive) 4 mg 4 mg PO DAILY #3 pac kets 01/11/25 (28) tablet (Slynd) mupirocin 2 % topical ointment 1 applic topical BID WV N 01/11/25 (Centany) folliculitis #22 grams promethazine 25 mg tablet 25 mg PO Q6H PRN nausea and 01/19/25 vomiting #20 tabs sulfamethoxazole 800 1 tab PO BID 10 days #20 tab s 02/04/25 mg-trimethoprim 160 mg tablet (Bactrim DS) Allergies Allergy/AdvReac Type Severity Reaction Status Date / Time No Known Allergies Allergy Verified 02/04/25 14:52 Review of Systems Const: Denies: fever(s), chills, body aches or change in appetite ENMT: Denies: throat pain or dental pain Card: Denies: chest pain GI: Denies: abdominal pain Musc: Reports: extremity pain; Denies: neck pain or back pain Skin/Breast: Denies: rash Neuro: Denies: headache(s) PFSH ED PFSH: Medical History No significant past medical history neghx: thyroid,dvt/pe PCP: [facility] ADD (attention deficit disorder) Asthma Hyperlipidemia Hypertension Type 2 diabetes mellitus Surgical History H/O decompression of ulnar nerve (~12/13/24) right elbow with medial epicondylectomy----Preoperative diagnosis: 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---Jose Lynch MD H/O wisdom tooth extraction (~07/2019) History of cholecystectomy (~06/07/17) Family History Father Diabetes Hyperlipidemia Hypertension Mother Diabetes Grandfather Diabetes Maternal Hyperlipidemia Paternal Hypertension Paternal Maternal Heart disease Paternal Grandmother Hyperlipidemia Maternal grandmother Hypertension Paternal Maternal Stroke Maternal grandmother Paternal grandmother Breast cancer Maternal great grandmother--dx age unknown Paternal grandmother--dx age unknown Family/Other Hyperlipidemia Paternal aunt Breast cancer Paternal aunt--dx age unknown Denies family history of Colon cancer Ovarian cancer Family history of thyroid problem Uterine cancer Social History Smoking and tobacco/nicotine status: never used tobacco/nicotine Physical Exam Const: COMMON NORMALS: no acute distress, patient oriented x3 and healthy appearing HENMT: COMMON NORMALS: normocephalic and atraumatic HEAD & SCALP: normocephalic and atraumatic Eye: COMMON NORMALS: conjunctivae normal CONJUNCTIVA: Yes conjunctivae normal Neck/C-Spine: COMMON NORMALS: full ROM and supple Chest: COMMONS NORMALS: normal inspection of the chest Resp: COMMON NORMALS: normal respiratory effort Cardio: COMMON NORMALS: regular rate, regular rhythm and No murmurs present (Cardio) RATE: regular rate RHYTHM: regular rhythm Extremity: COMMON NORMALS: full ROM NARRATIVE EXTREMITY EXAM: Slight erythema to left middle toe with a paronychia Neuro: COMMON NORMALS: patient oriented x3, moves all extremities and no focal motor deficits Psych: COMMON NORMALS: mental status grossly normal, Normal thought process present and cooperative THOUGHT PROCESS: Normal thought process present Skin: COMMON NORMALS: no rashes or lesions noted and no wounds GENERAL SKIN EXAM: no rashes or lesions noted Procedures Abscess I/D Site: foot Side (if applicable): left Local Anesthetic: bupivacaine 0.5% Amount of anesthesia used (mL): 6 Technique: needle aspiration Irrigation: No Packing used?: none Course Vital Signs: Vital signs: Vital Signs Temperature 98.4 F 02/04/25 14:48 Pulse Rate 121 H 02/04/25 14:48 Blood Pressure 140/94 02/04/25 14:48 Pulse Oximetry 96 02/04/25 14:48 Oxygen Delivery Me thod Room Air 02/04/25 14:48 MDM - General Adult Medical Decision Making Patient presents with paronychia to left middle toe no fracture we will place her on Bactrim she stable for discharge follow-up PCP return if worsening XR interpretation done by ED provider, pending radiology final review ED provider radiology interpretation(s): X-ray left foot no fracture Discharge Plan Discharge Patient Disposition: Home Clinical Impression: Acute paronychia of toe of left foot Condition: Stable Prescriptions: New sulfamethoxazole-trimethoprim [Bactrim DS] 800-160 mg tablet 1 tab PO BID 10 Days Qty: 20 0RF No Action venlafaxine 75 mg capsule,extended release 24hr 150 mg PO DAILY Rx Instructions: take 2 capusles by mouth daily (DME) blood-glucose meter [OneTouch Verio Flex Start] Kit See Rx Instructions .Route Qty: 1 3RF Rx Instructions: Check blood sugars 4 times a day. (DME) Diabetic Shoes with 3 pairs of inserts See Rx Instructions .Route .MEDSUPPLY Qty: 1 0RF Rx Instructions: As directed by [employer] [facility] famotidine 20 mg tablet 20 mg PO DAILY PRN (Reason: Stomach Upset) (DME) Dexcom G7 Sensor Device See Rx Instructions .ROUTE .COMPLEX Qty: 9 0RF Dose Instruction: CHANGE every 10 DAYS Rx Instructions: CHANGE every 10 DAYS Slynd 4 mg (28) tablet 4 mg PO DAILY Qty: 3 3RF mupirocin [Centany] 2 % ointment 1 applic topical BID PRN (Reason: folliculitis) Qty: 22 1RF (DME) OneTouch Ultra Test Strip See Rx Instructions .Route Qty: 100 3RF Rx Instructions: Check BS 4 times a day. (DME) lancets [OneTouch UltraSoft Lancets] Misc See Rx Instructions .Route Qty: 300 3RF Rx Instructions: Check BS 3 times a day. (DME) Dexcom G7 [facility] Misc See Rx Instructions .ROUTE .COMPLEX Qty: 1 0RF Dose Instruction: DIRECTED Rx Instructions: DIRECTED (DME) tuberculin-allergy syringes 1 mL 26 gauge x 3/8 syringe See Rx Instructions .Route Qty: 100 0RF Rx Instructions: As directed supply preferred cholecalciferol (vitamin D3) 1,250 mcg (50,000 unit) capsule 50,000 unit PO .weekly 56 Days Qty: 8 0RF Humulin R U-500 (Conc) Kwikpen 500 unit/mL (3 mL) insulin pen See Rx Instructions .ROUTE .COMPLEX Qty: 45 1RF Dose Instruction: inject 80 units SUBCUTANEOUSLY THREE TIMES DAILY before meals Rx Instructions: inject 80 units SUBCUTANEOUSLY THREE TIMES DAILY before meals melatonin 5 mg Capsule 5 mg PO BEDTIME PRN (Reason: Sleep) hydrocodone-acetaminophen 5-325 mg tablet 1 tab PO Q6H PRN (Reason: pain) Qty: 30 0RF epinephrine [EpiPen 2-Leo] 0.3 mg/0.3 mL auto-injector 0.3 mg IM Q10M PRN (Reason: anaphylaxis) Qty: 2 2RF Rx Instructions: for 3 doses albuterol sulfate 2.5 mg /3 mL (0.083 %) solution for nebulization 1 mg inhalation TID PRN (Reason: Wheezing) metoprolol succinate 50 mg tablet extended release 24 hr 50 mg PO BID lovastatin 40 mg tablet 40 mg PO DAILY naproxen 500 mg tablet 500 mg PO Q12H fluocinolone and shower cap 0.01 % oil 1 applic TOPICAL DAILY promethazine 25 mg tablet 25 mg PO Q6H PRN (Reason: nausea and vomiting) Qty: 20 0RF Discharge Orders: Discharge ED (Routine); Ordered 02/04/25 Ordered By: Stefan Dunn Referrals: Teodoro Vasquez MD [Primary Care Provider, Family Practice] - 4-7 days Discharge Diet: Advance as tolerated Discharge Activity: Resume usual activity Patient Instructions: Paronyjayceea (ED) Print Language: Sierra Leonean Coding Level of Care Code ED Air Conditioning Specialist for Gosia Starkey
[2025-02-04 14:48] VITALS: BP 140/94; PULSE 121; TEMP 36.9; O2SAT 96
[2025-02-04] MEDS: BUPivacaine 0.5% INJ 10 mL INJECTION (14:53)
[2025-02-04 15:07] VITALS: BP 130/89; PULSE 111; O2SAT 97
== END 2025-02-04 15:10 | disposition home or self-care (01) ==
PROVIDERS: Emergency Provider Emergency Medicine; PCP Family Medicine
DX: L03.032 Cellulitis of left toe (principal); E11.9 Type 2 diabetes mellitus without complications; I10 Essential (primary) hypertension; E78.5 Hyperlipidemia, unspecified
CPT/HCPCS: 10060; 73630; 99284; J3490

== ENCOUNTER 2025-02-08 14:54 | Outpatient (CLI) | payer MEDICAID, SELFPAY ==
--- NOTE | 2025-02-08 14:59 | US_ITS ---
WS: [id number] ULTRASOUND SOFT TISSUES bilateral distal lower extremities. HISTORY: SUBCUTANEOUS MASS COMPARISON: None available. TECHNIQUE: 2-D and color Doppler imaging is submitted. RIGHT: Ultrasound over the lateral distal tibia. No mass identified in the area of concern. There is no distortion of soft tissues. LEFT: Ultrasound over the lateral distal tibia demonstrates no abnormality. There is no soft tissue thickening or mass identified. US/US soft tissue/extremity [id number] IMPRESSION: Negative soft tissue ultrasound bilaterally over the lateral ankles.
== END 2025-02-08 14:55 | disposition home or self-care (01) ==
LOC: RAD 14:55
PROVIDERS: PCP Family Medicine; Visit Provider Nurse Practitioner Family
DX: R22.42 Localized swelling, mass and lump, left lower limb (principal)
CPT/HCPCS: 76882

== ENCOUNTER 2025-02-14 05:59 | Day surgery (SDC) | payer MEDICAID, SELFPAY ==
[2025-02-14] VITALS (10 sets, daily range): BP systolic 91–108; BP diastolic 46–71; PULSE 92–113; RESP 16–26; TEMP 36.3–36.8; O2SAT 95–100; BMI 45.8
--- NOTE | 2025-02-14 06:43 | W.PM.OPSUD ---
Surgery/Procedure H&P Update DATE OF PROCEDURE: February 14, 2025 DATE H&P PERFORMED: 01/18/25 H&P UPDATE INFORMATION: I have reviewed H&P completed within last 30 days, I have examined patient prior to procedure and No changes to prior documentation PREOP DIAGNOSIS: Left tardy ulnar nerve palsy PLANNED PROCEDURE: Operation Date: 02/14/25 07:00 Proposed Procedures p LEFT Ulnar Nerve Decompression(Left) - Jose Lynch MD
[2025-02-14 06:58] LABS: OR HCG Qualitative Urine Negative (Negative)
--- NOTE | 2025-02-14 06:59 | ANES.PREANE2 ---
Pre-Anesthetic Assessment Height/Weight: Height 1.75 m Weight 140.614 kg Temp Pulse Resp BP Pulse Ox O2 Del Method 97.3 F L 110 H 18 108/71 100 Room Air 02/14/25 06:19 02/14/25 06:19 02/14/25 06:19 02/14/25 06:19 02/14/25 06:19 02/14/25 06:19 Preop Diagnosis: Left tardy ulnar nerve palsy Operation Date: 02/14/25 07:00 Proposed Procedures p LEFT Ulnar Nerve Decompression(Left) - Jose Lynch MD Familial anesthetic complications: None Was Beta Ana María taken within 24 hours: Yes Was Clonidine taken within 24 hours: N/A Last intake: Intake Last Liquid Date 02/13/25 Last Liquid Time 22:00 Last Solid Date 02/13/25 Last Solid Time 17:00 Social No alcohol and No tobacco Exam alert, oriented x 3, clear to auscultation bilaterally and regular rate & rhythm Airway Mallampati: Class III Dentition: full GI Gastroesophageal Reflux Disease Metabolic Diabetes Mellitus, Hyperlipidemia and Morbid Obesity Anesthetic Plan ASA status: 3 Anesthesia: General and Regional (specify below) Other: patient requested nerve block Risk of > 500 ml blood loss (7ml/kg in children): No Medications/Allergies Home Medications ?Medication ?Instructions ?Recorded ?Confirmed ?Last Taken ?Type blood-glucose meter (OneTouch #1 ea 03/10/21 02/08/25 Unknown Rx Verio Flex Start kit) venlafaxine 75 mg capsule,extended 150 mg PO DAILY 03/10/21 02/13/25 02/13/25 History release 24 hr blood sugar diagnostic (OneTouch #100 ea 05/12/21 02/08/25 Unknown Rx Ultra Test strips) melatonin 5 mg capsule 5 mg PO BEDTIME PRN Sleep 08/12/21 02/13/25 12/11/24 History epinephrine 0.3 mg/0.3 mL 0.3 mg (0.3 mL) IM Q10M PRN 11/23/21 02/13/25 Unknown Rx injection, auto-injector (EpiPen anaphylaxis #2 ea 2-Leo) lancets (OneTouch UltraSoft #300 ea 01/08/22 02/08/25 Unknown Rx Lancets) Diabetic Shoes with 3 pairs of #1 ea 12/28/22 02/08/25 Unknown Rx inserts famotidine 20 mg tablet 20 mg PO DAILY PRN Stomach Upset 03/01/23 02/13/25 Unknown History blood-glucose,box sealing machine feeder,cont #1 ea 05/06/23 02/08/25 Unknown Rx (Dexcom G7 Corner Trimmer Operator) tuberculin-allergy syringes 1 mL #100 ea 09/01/23 02/08/25 Unknown Rx 26 gauge x 3/8 albuterol sulfate 2.5 mg/3 mL 1 mg inhalation TID PRN Wheezing 03/16/24 02/13/25 Unknown History (0.083 %) solution for nebulization fluocinolone 0.01 % scalp oil and 1 applic topical DAILY 03/16/24 02/13/25 12/09/24 History shower cap lovastatin 40 mg tablet 40 mg PO DAILY 03/16/24 02/13/25 02/13/25 History metoprolol succinate 50 mg 50 mg PO BID 03/16/24 02/13/25 02/13/25 History tablet,extended release 24 hr naproxen 500 mg tablet 500 mg PO Q12H 03/16/24 02/13/25 02/13/25 History blood-glucose sensor (Dexcom G7 #9 ea 11/10/24 02/08/25 Unknown Rx Sensor device) cholecalciferol (vitamin D3) 1,250 50,000 unit PO .weekly 8 weeks #8 12/05/24 02/14/25 02/07/25 Rx mcg (50,000 unit) capsule caps drospirenone (contraceptive) 4 mg 4 mg PO DAILY #3 packets 01/11/25 02/13/25 02/13/25 Rx (28) tablet (Slynd) mupirocin 2 % topical ointment 1 applic topical BID PRN 01/11/25 02/13/25 Unknown Rx (Centany) folliculitis #22 grams promethazine 25 mg tablet 25 mg PO Q6H PRN nausea and 01/19/25 02/13/25 Unknown Rx vomiting #20 tabs lisinopril 10 mg tablet 10 mg PO DAILY 02/09/25 02/13/25 02/13/25 History insulin regular hum U-500 conc 500 80 unit SUBCUT TID 02/13/25 02/13/25 02/13/25 History unit/mL(3 mL) subcut pen (Humulin R U-500 (Conc) Insulin Kwikpen) Allergies Allergy/AdvReac Type Severity Reaction Status Date / Time No Known Allergies Allergy Verified 02/14/25 06:11 Current Medications Generic Name Dose Route Start Last Admin Trade Name Ashley PRN Reason Stop Dose Admin Sodium Chloride 1,000 mls @ 30 mls/hr 02/14/25 06:15 02/14/25 06:30 Sodium Chloride 0.9% IV 02/15/25 06:14 30 mls/hr .Q24H AQUILES Administration PFSH Anesthesia Medical History (Updated 02/12/25 @ 00:00 by VILMA Stevens) No significant past medical history neghx: thyroid,dvt/pe PCP: [facility] ADD (attention deficit disorder) Asthma Hyperlipidemia Hypertension Type 2 diabetes mellitus Surgical History H/O decompression of ulnar nerve (~12/13/24) right elbow with medial epicondylectomy----Preoperative diagnosis: 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---Jose Lynch MD H/O wisdom tooth extraction (~07/2019) History of cholecystectomy (~06/07/17) Family History Father Diabetes Hyperlipidemia Hypertension Mother Diabetes Grandfather Diabetes Maternal Hyperlipidemia Paternal Hypertension Paternal Maternal Heart disease Paternal Grandmother Hyperlipidemia Maternal grandmother Hypertension Paternal Maternal Stroke Maternal grandmother Paternal grandmother Breast cancer Maternal great grandmother--dx age unknown Paternal grandmother--dx age unknown Family/Other Hyperlipidemia Paternal aunt Breast cancer Paternal aunt--dx age unknown Denies family history of Colon cancer Ovarian cancer Family history of thyroid problem Uterine cancer Social History Smoking and tobacco/nicotine status: never used tobacco/nicotine Data Anesthesia Cardiac Studies: Echocardiogram 03/16/23 Holter Monitor 12/28/22 Anesthesia Procedures Nerve Block Nerve Block 1: Main Anesthesia: general anesthesia Time Out Performed: Yes Consent: requested by attending/covering physician, from patient, from other, risks and benefits reviewed and patient agrees to proceed Nerve block location: supraclavicular (L) Anesthesia monitors applied: pulse oximetry, EKG, BP cuff and oxygen Nerve block position: semi sitting Anesthetic Used: ropivicaine 0.5% (30 ml) and with decadron (4 mg) Ultrasound used to: recognize landmarks, visualize and ID brachial plexus, in supraclavicular region and visualize and ID interscalene groove Interscalene/Femoral BLK: 4 stimuplex 21 g needle used for position and inplane approach, visualize local anesthetic spread and no vascular puncture identified Injection: neg aspiration of heme Patient Tolerated Procedure: well Complications: none
[2025-02-14] MEDS: ceFAZolin 3,000 MG in sodium chloride 0.9% (plus) 100 ML 200 MG IV (07:02)
--- NOTE | 2025-02-14 07:45 | PM.OP ---
Operative Report Date of procedure: February 14, 2025 Surgeon: Jose Lynch MD Procedure: Preoperative diagnosis: Tardy ulnar nerve palsy left cubital tunnel Postoperative diagnosis: Same Procedure: Cubital tunnel release left elbow Surgeon: Jose Rawls MD Anesthesia: Regional block with general anesthetic EBL: None Tourniquet time: None Indications: Ines is a 24-year-old white female has been seen for bilateral ulnar nerve palsy of both elbows. She has recently had cubital tunnel release on the right with good results and now is scheduled for cubital tunnel on the left. She had previously had nerve conduction test demonstrating the compression of the ulnar nerve at the cubital tunnel level. Procedure: After obtaining her consent patient had preoperative regional block of the left arm done in the preop holding. Patient was then taken to the op room placed in the op table supine position general anesthetic administered. Once good anesthesia was achieved left arm was prepped and draped usual fashion. There was attempt to try and placed a sterile tourniquet however this was infringing upon the surgical site and therefore this was abandoned. After surgical timeout a curvilinear incision was centered over the medial epicondyle of the left elbow. Sharp dissection taken on down the subcutaneous tissues electrocautery was used for hemostasis. And blunt sharp fashion with Metzenbaum scissors dissection was taken all the way down to the distal sheath of the ulnar nerve. Once identified this was divided and released approximately several centimeters above the medial epicondyle as well as down into the muscle bellies of the flexor bony. This quite thickened tissue over the area and scarring in. All soft tissues are debrided away from the ulnar nerve until is free to move. No need for medial epicondylectomy was identified at this time. Areas and washed copious amounts sterile irrigation. Deep structure reapproximated 3-0 Vicryl interrupted sutures. Skin was then closed with running horizontal mattress suture of 3-0 Prolene. Wounds are cleaned and dried dressed this Xeroform gauze, sterile gauze dressing, Kerlix wrap, Jimi wrap for compression. Patient awakened transferred to cover room stable condition
[2025-02-14] MEDS: HYDROcodone-acetaminophen 5-325 mg Tablet 1 TAB PO (08:34)
--- NOTE | 2025-02-14 09:55 | ANE.PACU2 ---
Inpatient post-anesthesia follow up: Airway intact: Yes Vital signs: Temperature 97.8 F Pulse Rate 105 Respiratory Rate 17 Blood Pressure 96/66 Pulse Oximetry 95 Oxygen Delivery Me thod Room Air Oxygen Flow Rate 6 Fraction of Inspir ed Oxygen Hydration adequate: Yes Nausea and vomiting: No Pain level: 1 Mental status: Baseline
== END 2025-02-14 08:55 | disposition home or self-care (01) ==
PROVIDERS: PCP Family Medicine; Visit Provider Orthopaedic Surgery
PROC: (CPT 64718; principal; 2025-02-14 07:00)
DX: G56.22 Lesion of ulnar nerve, left upper limb (principal); K21.9 Gastro-esophageal reflux disease without esophagitis; E11.9 Type 2 diabetes mellitus without complications; E78.5 Hyperlipidemia, unspecified; E66.01 Morbid (severe) obesity due to excess calories; Z68.42 Body mass index [BMI] 45.0-49.9, adult; Z79.4 Long term (current) use of insulin; I10 Essential (primary) hypertension
CPT/HCPCS: 64718; 36416; 81025; 82962; J0690; J1100; J1885; J2250; J2371; J2405; J2704; J2795; J3010; J7030; J9999

== ENCOUNTER 2025-03-08 12:40 | Outpatient (CLI) | payer MEDICAID, SELFPAY ==
--- NOTE | 2025-03-08 12:45 | US_ITS ---
WS: [id number] US transvaginal [id number] HISTORY: N93.9 - Abnormal uterine and vaginal bleeding, unspecified COMPARISON: None available. Uterus: 5.5 cm x 4.3 cm x 4.0 cm. Poorly visualized uterus due to patient's body habitus. No fibroid identified. Endometrium: 0.7 cm. Limited evaluation. No abnormality identified. Right ovary: 2.6 cm x 2.4 cm x 1.5 cm. Normal size and vascularity, no cystic or solid masses. Small follicles. No cyst. Left ovary: 3.5 cm x 3.0 cm x 2.1 cm. Normal size and vascularity, no cystic or solid masses. Poorly visualized. No free fluid in the cul-de-sac. US/US transvaginal [id number] IMPRESSION: 1. Extremely limited evaluation of the uterus and adnexa due to body habitus. 2. No abnormality noted within the endometrium. 3. Poorly visualized uterus and ovaries.
== END 2025-03-08 12:41 | disposition home or self-care (01) ==
LOC: RAD 12:40
PROVIDERS: PCP Family Medicine; Visit Provider Nurse Practitioner Women's Health
DX: N93.9 Abnormal uterine and vaginal bleeding, unspecified (principal)
CPT/HCPCS: 76830

== ENCOUNTER 2025-03-22 07:55 | Outpatient (CLI) | payer MEDICAID, SELFPAY ==
--- NOTE | 2025-03-22 08:10 | NM_ITS ---
WS: [id number] NUCLEAR MEDICINE GASTRIC STUDY CLINICAL INFORMATION: POST PRANDIAL VOMITING TECHNIQUE: Following oral ingestion of cooked egg mixed with 1.02 mCi technetium 99m sulfur colloid, anterior images of the stomach were obtained over the course of 90 minutes. Activity curve was performed over the course of 90 minutes with linear regression analysis. FINDINGS: Significantly delayed gastric emptying with T1 half emptying 409 minutes Only 6% emptying at 61 minutes 21% emptying at 121 minutes NM/[place] st [id number] IMPRESSION: 1. Significantly delayed gastric emptying with T1 half emptying 409 minutes. ( Normal 45 to 110 minutes). Recommend correlation for gastroparesis. *Normal median T1 half 90 minutes for solid egg meal (45-110 minutes). Delayed gastric retention is defined as 90% retained at 1 hour, 60% at 2 hour s, 30% at 3 hours, and 10% at 4 hours (normal percent gastric retention is 37-9 0% at 1 hour, 30-60% at 2 hours, and 0-10% at 4 hours).
== END 2025-03-22 07:56 | disposition home or self-care (01) ==
LOC: RAD 07:57
PROVIDERS: PCP Family Medicine; Visit Provider Family Medicine
DX: R11.10 Vomiting, unspecified (principal); K31.84 Gastroparesis
CPT/HCPCS: 78264; A9541

== ENCOUNTER 2025-04-17 08:08 | Day surgery (SDC) | payer MEDICAID, SELFPAY ==
[2025-04-17 08:34] VITALS: BP 111/72; PULSE 103; RESP 18; TEMP 36.6; O2SAT 96; BMI 47.1
[2025-04-17 09:29] LABS: HCG, Serum Qual Negative (Negative)
--- NOTE | 2025-04-17 09:31 | ANES.PREANE2 ---
Pre-Anesthetic Assessment Height/Weight: Height 1.75 m Weight 144.696 kg Temp Pulse Resp BP Pulse Ox O2 Del Method 97.8 F 103 H 18 111/72 96 Room Air 04/17/25 08:34 04/17/25 08:34 04/17/25 08:34 04/17/25 08:34 04/17/25 08:34 04/17/25 08:34 Operation Date: 04/17/25 10:00 Proposed Procedures p EGD EGD with Biopsy 47668 K21.9(Not Applicable) - Delio Mathews MD Familial anesthetic complications: Nausea Was Beta Ana María taken within 24 hours: Yes Was Clonidine taken within 24 hours: N/A Last intake: Intake Last Liquid Date 04/16/25 Last Liquid Time 23:59 Last Solid Date 04/16/25 Last Solid Time 18:00 Social No alcohol and No tobacco Exam alert, oriented x 3, clear to auscultation bilaterally and regular rate & rhythm Airway Submandibular: within normal limits Cervical ROM: within normal limits Mallampati: Class III Dentition: full History/ROS No significant history except as noted and No significant complaints Pulmonary Asthma and Exertional Dyspnea CV/HEM Arrythmia CONCLUSIONS LV systolic function is normal with EF of 60-65% Diastolic function is normal Mild tricuspid regurgitation No comparison studies are available None reported Hepatic None reported GI Gastroesophageal Reflux Disease and Peptic Ulcer Disease Metabolic Diabetes Mellitus, Hyperlipidemia and Morbid Obesity Musc/skel Lower Back Pain Neuropsych Anxiety, Depression, Headache and Neuropathy Anesthetic Plan ASA status: 3 Anesthesia: Anesthesia Evaluation, General and MAC Risk of > 500 ml blood loss (7ml/kg in children): No Medications/Allergies Home Medications ?Medication ?Instructions ?Recorded ?Confirmed ?Last Taken ?Type blood-glucose meter (OneTouch #1 ea 03/10/21 03/29/25 Unknown Rx Verio Flex Start kit) venlafaxine 75 mg capsule,extended 150 mg PO DAILY 03/10/21 04/11/25 04/11/25 History release 24 hr blood sugar diagnostic (AltraVaxTouch #100 ea 05/12/21 03/29/25 Unknown Rx Ultra Test strips) melatonin 5 mg capsule 5 mg PO BEDTIME PRN Sleep 08/12/21 04/11/25 1 Day Ago History ~04/10/25 epinephrine 0.3 mg/0.3 mL 0.3 mg (0.3 mL) IM Q10M PRN 11/23/21 04/11/25 2 Years Ago Rx injection, auto-injector (EpiPen anaphylaxis #2 ea ~04/11/23 2-Leo) lancets (OneTouch UltraSoft #300 ea 01/08/22 03/29/25 Unknown Rx Lancets) Diabetic Shoes with 3 pairs of #1 ea 12/28/22 03/29/25 Unknown Rx inserts famotidine 20 mg tablet 20 mg PO DAILY PRN Stomach Upset 03/01/23 04/11/25 04/11/25 History blood-glucose,internet marketing coordinator,cont #1 ea 05/06/23 03/29/25 Unknown Rx (Dexcom G7 [employer]) tuberculin-allergy syringes 1 mL #100 ea 09/01/23 03/29/25 Unknown Rx 26 gauge x 3/8 albuterol sulfate 2.5 mg/3 mL 1 mg inhalation TID PRN Wheezing 03/16/24 04/11/25 1 Month Ago History (0.083 %) solution for nebulization ~03/11/25 fluocinolone 0.01 % scalp oil and 1 applic topical DAILY 03/16/24 04/11/25 04/10/25 History shower cap lovastatin 40 mg tablet 40 mg PO DAILY 03/16/24 04/11/25 04/10/25 History metoprolol succinate 50 mg 50 mg PO BID 03/16/24 04/11/25 04/11/25 History tablet,extended release 24 hr cholecalciferol (vitamin D3) 1,250 50,000 unit PO .weekly 8 weeks #8 12/05/24 04/11/25 04/11/25 Rx mcg (50,000 unit) capsule caps drospirenone (contraceptive) 4 mg 4 mg PO DAILY #3 packets 01/11/25 04/11/25 04/11/25 Rx (28) tablet (Slynd) mupirocin 2 % topical ointment 1 applic topical BID PRN 01/11/25 04/11/25 Unknown Rx (Centany) folliculitis #22 grams promethazine 25 mg tablet 25 mg PO Q6H PRN nausea and 01/19/25 04/11/25 Unknown Rx vomiting #20 tabs lisinopril 10 mg tablet 10 mg PO DAILY 02/09/25 04/11/25 04/10/25 History insulin regular hum U-500 conc 500 80 unit SUBCUT TID 02/13/25 04/11/25 04/11/25 History unit/mL(3 mL) subcut pen (Humulin R U-500 (Conc) Insulin Kwikpen) hydrocodone 5 mg-acetaminophen 325 1 tab PO Q6H PRN pain #30 tabs 02/14/25 04/11/25 04/10/25 Rx mg tablet blood-glucose sensor (Dexcom G7 #9 ea 02/27/25 03/29/25 Unknown Rx Sensor device) metoclopramide HCl 5 mg tablet 50 mg PO Q8H PRN Nausea And 03/29/25 04/11/25 04/10/25 History Vomiting Allergies Allergy/AdvReac Type Severity Reaction Status Date / Time corn Allergy ALGY-Anaphy Verified 04/11/25 08:54 laxis Current Medications Generic Name Dose Route Start Last Admin Trade Name Freq PRN Reason Stop Dose Admin Sodium Chloride 1,000 mls @ 15 mls/hr 04/17/25 08:24 04/17/25 08:38 Sodium Chloride 0.9% IV 04/18/25 08:23 15 mls/hr .Q24H PRN Administration COLONOSCOPY FLUIDS PFSH Anesthesia Medical History No significant past medical history neghx: thyroid,dvt/pe PCP: [facility] ADD (attention deficit disorder) Asthma Hyperlipidemia Hypertension Type 2 diabetes mellitus Surgical History H/O decompression of ulnar nerve (~12/13/24) right elbow with medial epicondylectomy----Preoperative diagnosis: 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---Jose Lynch MD H/O wisdom tooth extraction (~07/2019) History of cholecystectomy (~06/07/17) Family History Father Diabetes Hyperlipidemia Hypertension Mother Diabetes Grandfather Diabetes Maternal Hyperlipidemia Paternal Hypertension Paternal Maternal Heart disease Paternal Grandmother Hyperlipidemia Maternal grandmother Hypertension Paternal Maternal Stroke Maternal grandmother Paternal grandmother Breast cancer Maternal great grandmother--dx age unknown Paternal grandmother--dx age unknown Family/Other Hyperlipidemia Paternal aunt Breast cancer Paternal aunt--dx age unknown Denies family history of Colon cancer Ovarian cancer Family history of thyroid problem Uterine cancer Social History Smoking and tobacco/nicotine status: never used tobacco/nicotine Female Reproductive History Date of last menstrual period: 04/07/25 Data Anesthesia Cardiac Studies: Echocardiogram 03/16/23 Holter Monitor 12/28/22
--- NOTE | 2025-04-17 09:49 | W.PM.OPSUD ---
Surgery/Procedure H&P Update DATE OF PROCEDURE: April 17, 2025 DATE H&P PERFORMED: 03/29/25 H&P UPDATE INFORMATION: I have reviewed H&P completed within last 30 days, I have examined patient prior to procedure, No changes to prior documentation and Risks and benefits of the procedure reviewed PLANNED PROCEDURE: Operation Date: 04/17/25 10:00 Proposed Procedures p EGD EGD with Biopsy 70728 K21.9(Not Applicable) - Delio Mathews MD
[2025-04-17 10:11] VITALS: BP 100/64; PULSE 120; RESP 21; TEMP 36.6; O2SAT 97
[2025-04-17 10:23] VITALS: BP 114/82; PULSE 109; RESP 18; O2SAT 95
--- NOTE | 2025-04-17 10:40 | ANE.PACU2 ---
Inpatient post-anesthesia follow up: Airway intact: Yes Vital signs: Temperature 97.9 F Pulse Rate 109 Respiratory Rate 18 Blood Pressure 114/82 Pulse Oximetry 95 Oxygen Delivery Me thod Room Air Oxygen Flow Rate Fraction of Inspir ed Oxygen Hydration adequate: Yes Nausea and vomiting: No Pain level: 1 Mental status: Baseline
== END 2025-04-17 10:40 | disposition home or self-care (01) ==
PROVIDERS: Student in an Organized Health Care Education/Training Program; PCP Family Medicine; Visit Provider Student in an Organized Health Care Education/Training Program
PROC: 0DJ08ZZ Inspection of Upper Intestinal Tract, Via Natural or Artificial Opening Endoscopic (ICD-10-PCS; principal; 2025-04-17 10:00)
DX: R12 Heartburn (principal); K21.9 Gastro-esophageal reflux disease without esophagitis; K29.70 Gastritis, unspecified, without bleeding; K27.9 Peptic ulcer, site unspecified, unspecified as acute or chronic, without hemorrhage or perforation; E11.9 Type 2 diabetes mellitus without complications; E78.5 Hyperlipidemia, unspecified; E66.01 Morbid (severe) obesity due to excess calories; Z68.42 Body mass index [BMI] 45.0-49.9, adult; F41.8 Other specified anxiety disorders; G62.9 Polyneuropathy, unspecified; Z79.4 Long term (current) use of insulin; Z79.891 Long term (current) use of opiate analgesic; I10 Essential (primary) hypertension; J45.909 Unspecified asthma, uncomplicated
CPT/HCPCS: 36416; 43239; 82962; 84703; 88305; J2405; J2704; J7030